=== PATIENT | male | born 1980 | race Caucasian/White ===

== ENCOUNTER 2024-05-02 16:02 | Emergency (ER) | payer BC, SELFPAY ==
[2024-05-02 16:23] VITALS: BP 132/91; PULSE 113; TEMP 36.9; O2SAT 96; BMI 28.6
[2024-05-02 16:40] LABS: Influenza Virus A Antigen Negative; Influenza Virus B Antigen Negative; Internal Control Within Normal Limits
[2024-05-02 16:41] LABS: Internal Control Within Normal Limits; SARS-CoV-2 Ag NEGATIVE (NEGATIVE); Strep A Antigen Screen Negative
[2024-05-02] MEDS: PREDNISONE 20 MG TABLET 40 MG PO (17:12)
[2024-05-02] MEDS: AMOXICILLIN/POT CLAV 875-125 MG TABLET 1 TAB PO (17:13)
[2024-05-02] MEDS: DOXYCYCLINE MONOHYDRATE 100 MG CAPSULE PO (17:13)
[2024-05-02 17:17] VITALS: PULSE 98; O2SAT 100
--- NOTE | 2024-05-02 17:26 | ED_ITS ---
HPI HPI - General Adult General Chief complaint: Upper Respiratory Infection Stated complaint: Upper Respiratory Infection Time Seen by Provider: 05/02/24 16:38 Source: patient Mode of arrival: walk-in Limitations: no limitations History of Present Illness HPI narrative: 43-year-old male to the emergency department chief complaint of 2 weeks of productive cough, fevers, chills, malaise. Patient reports he has a history of asthma, he is a daily smoker. He denies any chest pain. He reports mild shortness of breath with coughing fits. Otherwise at his baseline health Related Data Home Medications ?Medication ?Instructions ?Recorded ?Confirmed losartan 50 mg tablet 75 mg PO QDAY 05/02/24 05/02/24 propranolol 20 mg tablet 20 mg PO Q8H 05/02/24 05/02/24 Previous Rx's ?Medication ?Instructions ?Recorded amoxicillin 875 mg-potassium 1 tab PO Q12H #14 tabs 05/02/24 clavulanate 125 mg tablet dxoxfvuvmrbzquh-nmmflukyqeovjba-UN 5 ml PO Q4H PRN cold symptoms #118 05/02/24 2 mg-30 mg-10 mg/5 mL oral syrup mL (Bromfed DM) doxycycline monohydrate 100 mg 100 mg PO BID 7 days #14 caps 05/02/24 capsule prednisone 20 mg tablet 60 mg (3 x 20 mg) PO DAILY 5 days 05/02/24 #15 tabs Allergies Allergy/AdvReac Type Severity Reaction Status Date / Time No Known Drug Allergies Allergy Verified 05/02/24 16:21 Opioid HPI Opioid Management Most Recent Opioid Data: No Data to Display Review of Systems ROS Status of ROS 10 or more systems reviewed and unremark able except as noted in history and below PFSH PFSH Social History Little interest or pleasure in doing things: not at all Feeling down, depressed, or hopeless: not at all Exam Narrative Exam Narrative: VITALS: I have reviewed the triage vital signs. GENERAL: Well developed, well appearing adult in no acute distress. NEURO: Alert and oriented. Moves all extremities. Face is symmetric and expressive. EYES: PERRL. No scleral icterus or conjunctival injection. No discharge. HENT: Normocephalic, atraumatic. Hearing is grossly intact. Nares grossly patent and without discharge. Mucous membranes moist. NECK: No JVD. Patient moves neck without restriction. CARDIO: Rhythm regular. Normal rate. No murmur, rub, or gallop. Pulses equal bilaterally in the upper and lower extremity. No lower extremity edema. PULM: Wet cough. Rhonchi that clear with coughing. Diminished at the bases. Trace wheezing throughout GI/: Abdomen is soft and non-tender. Normoactive bowel sounds. EXTREMITIES: Symmetric muscle bulk. No joint swelling. No clubbing, cyanosis, or deformity. SKIN: Warm and dry. Normal turgor. No rash or lesions appreciated. PSYCH: Mood, affect, and interaction is appropriate to the setting. Constitutional Vital Signs, click to edit/add: Last Vital Signs Temp 98.5 F 05/02/24 16:23 Pulse 98 H 05/02/24 17:17 Resp 20 05/02/24 17:17 BP 132/91 05/02/24 16:23 Pulse Ox 100 05/02/24 17:17 O2 Del Method Room Air 05/02/24 17:17 Course Vital Signs Vital signs: Vital Signs Temperature 98.5 F 05/02/24 16:23 Pulse Rate 113 H 05/02/24 16:23 Respiratory Rate 18 05/02/24 16:23 Blood Pressure 132/91 05/02/24 16:23 Pulse Oximetry 96 05/02/24 16:23 Oxygen Delivery Method Room Air 05/02/24 16:23 Temperature 98.5 F 05/02/24 16:23 Pulse Rate 98 H 05/02/24 17:17 Respiratory Rate 20 05/02/24 17:17 Blood Pressure 132/91 05/02/24 16:23 Pulse Oximetry 100 05/02/24 17:17 Oxygen Delivery Method Room Air 05/02/24 17:17 Medical Decision Making [facility] Narrative Medical decision making narrative: 43-year-old male to the emergency department chief complaint of productive cough for 2 weeks. Vital stable, the patient is afebrile. Clinical exam and history are consistent with pneumonia. Given his smoking status/asthma we will cover him with both doxycycline and Augmentin. Bromfed, steroids, albuterol for suspected superimposed asthma exacerbation. Patient agrees with this plan. Return precautions were discussed. All questions were answered. Patient was discharged home. Lab Data Labs: Lab Results 05/02/24 Range/Units 16:20 Influenza Type A Ag Negative Influenza Type B Ag Negative SARS-CoV-2 Ag (CV2AG) Negative (NEGATIVE) Streptococcus Screen Negative Discharge Plan Discharge Chief Complaint: Upper Respiratory Infection Clinical Impression: Community acquired pneumonia Patient Disposition: Home, Self-Care Time of Disposition Decision: 17:00 Condition: Good Mode of Transportation: Private Vehicle Prescriptions / Home Meds: New doxycycline monohydrate 100 mg capsule 100 mg PO BID 7 Days Qty: 14 0RF ncfsulevcmqvgik-mnolrjdmh-PN [Bromfed DM] 2-30-10 mg/5 mL syrup 5 ml PO Q4H PRN (Reason: cold symptoms) Qty: 118 0RF amoxicillin-pot clavulanate 875-125 mg tablet 1 tab PO Q12H Qty: 14 0RF prednisone 20 mg tablet 60 mg PO DAILY 5 Days Qty: 15 0RF No Action losartan 50 mg tablet 75 mg PO QDAY propranolol 20 mg tablet 20 mg PO Q8H Print Language: [place] Instructions: Community Acquired Pneumonia (ED) Referrals: Celine Flores MD [Primary Care Provider] - 1 week (Call the office of your primary care doctor to arrange for follow-up within the above-stated timeframe. Your ED visit was focused on your acute issue and does not replace primary care. You should review your labs, imaging, and diagnoses from this ED visit with your primary care physician. There may be non-emergent/ incidental findings that need further evaluation. You should review your vital signs including blood pressure with your PCP. If you were prescribed medications you should discuss possible side-effects and drug interactions with your pharmacist. Call 911 or go to the nearest Emergency Department if you develop any new or worsening symptoms. Seek immediate medical attention if you develop: worsening shortness of breath, difficulty breathing, chest pain, nausea, vomiting, weakness, numbness, tingling, excessive sweating, loss of motion in your arms or legs, or any new or worsening symptoms.) Discharge Date/Time: 05/02/24 17:17
== END 2024-05-02 17:17 | disposition home or self-care (01) ==
PROVIDERS: Emergency Provider Student in an Organized Health Care Education/Training Program; Family Provider Family Medicine; PCP Family Medicine
DX: J18.9 Pneumonia, unspecified organism (principal); J45.909 Unspecified asthma, uncomplicated; F17.200 Nicotine dependence, unspecified, uncomplicated
CPT/HCPCS: 87070; 87804; 87811; 87880; 99285; J7512

== ENCOUNTER 2024-05-05 00:05 | Emergency (ER) | payer BC, SELFPAY ==
[2024-05-05 00:08] VITALS: BP 136/86; PULSE 72; TEMP 36.7; O2SAT 100; BMI 28.6
--- NOTE | 2024-05-05 00:16 | ECG_ITS ---
[facility] Test Date: 2024-05-05 Pat Name: ELVIN YO Department: Room: - Gender: Male Belt Maker: : 1980 Requested By: [id number] Order Number: [id number] Reading MD: HALEY SANDERSON Measurements Intervals [place] Rate: 69 P: 65 UT: 150 QRS: 20 QRSD: 104 T: 33 QT: 370 QTc: 390 Interpretive Statements 1100 Sinus rhythm 9110 normal ECG No previous ECG available for comparison Electronically Signed On 05-05-2024 6:49:12 EST by HALEY SANDERSON
--- NOTE | 2024-05-05 00:16 | XR_ITS ---
The [address] [address] Patient Name: ELVIN YO MRN: [id number] date: 1980 Sex: M Assigned Patient Location: ER Current Patient Location: ER Accession/Order Number: [id number] Exam Date: 05/05/2024 00:38 Report Date: 05/05/2024 00:56 At the request of: RYAN PARRY Procedure: XR chest 2V EXAM: XR chest 2V HISTORY: chest pain COMPARISON: None. TECHNIQUE: 2 views of the chest were obtained. FINDINGS: The cardiac silhouette is normal in size. Calcified granulomas are seen in the right lung. There is no significant pneumothorax or pleural effusion. No acute osseous abnormality is seen. XR/XR chest 2V IMPRESSION: 1. No acute cardiopulmonary abnormality. Electronically authenticated by: Andrew CRONIN Date: 05/05/2024 00:56
--- OUTSIDE RECORDS SUMMARY | 2024-05-05 00:17 | XMS_ITS | CCD ---
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 Role Phone JACQUI SUTTON Attending Unavailable Gudimella, Wood Primary Care Physician Gudimella, Wood Attending Unavailable Gudimella, Wood Attending Unavailable Gudimella, Wood Attending Unavailable Gudimella, Wood Attending Unavailable Gudimella, Wood Attending Unavailable Gudimella, Wood Attending Unavailable Gudimella, Celine Referring Unavailable Cristhian Murray Attending Unavailable Cristhian Murray Admitting Unavailable Cristhian Murray Attending Unavailable Cristhian Murray Referring Unavailable Gudimella, Wood Admitting Unavailable Gudimella, Wood Attending Unavailable Gudimella, Wood Admitting Unavailable Gudimella, Wood Attending Unavailable Rocio Aragon Attending Unavailable Gudimella, Wood Referring Unavailable Gudimella, Wood Attending Unavailable Gudimella, Wood Attending Unavailable Medications Current Medications Medication Drug Class(es) Dates Sig (Normalized) Sig (Original) atorvastatin 20 mg oral tablet (2 sources) HMG-CoA Reductase Inhibitor Start: 03-17-2024 take 1 tablet by mouth once daily atorvastatin 20 mg Tab See Instructions, TAKE 1 TABLET BY MOUTH EVERY DAY, # 90 tab(s), Refills(s) 1, Pharmacy: [id number], 188, cm, 02/23/24 12:34:00 EDT, Height/Length Dosing, 105.8, kg, 02/23/24 12:34:00 EDT, Weight Dosing Start Date: 03/17/24 Status: Ordered Start: 02-23-2024 take 1 tablet by zaheer th once daily atorvastatin 20 mg Tab 20 mg = 1 tab(s), Oral, Daily, # 30 tab(s), Refills(s) 0, Pharmacy: [facility]/pharmacy #[id number], 188, cm, 02/23/24 12:34:00 EDT, Height/Length Dosing, 105.8, kg, 02/23/24 12:34:00 EDT, Weight Dosing Start Date: 02/23/24 Status: Ordered benzonatate 200 mg oral capsule (1 source) Non-narcotic Antitussive Start: 08-04-2023 End: 08-11-2023 take 1 capsule by mouth three times daily as needed for cough benzonatate 200 mg oral capsule 200 mg = 1 cap(s), Oral, TID, PRN Cough, X 7 day(s), # 14 cap(s), Refills(s) 0, Pharmacy: [id number], 188, cm, 08/04/23 13:37:00 EDT, Height/Length Dosing, 99.8, kg, 08/04/23 13:37:00 EDT, Weight Dosing Start Date: 08/04/23 Stop Date: 08/11/23 Status: Ordered BP machine and regular cuff (10 sources) Start: 06-03-2023 BP machine and regular cuff BP machine and regular cuff, See Instructions, 1 EA, 0, Check BP 3x/day for 5 days, Supply Start Date: 06/03/23 Status: Ordered brompheniramine maleate 0.4 mg/ml / dextromethorphan hydrobromide 2 mg/ml / pseudoephedrine hydrochloride 6 mg/ml oral solution (1 source) alpha-Adrenergic Agonist, Uncompetitive B-hdhmue-T-asparta te Receptor Antagonist, Sigma-1 Agonist Start: 08-04-2023 take 5 mL by mouth four times daily for cough and congestion Bromfed DM oral syrup 5 mL, Oral, QID for cough and congestion, 200 mL, Refill(s) 0, [id number], 188, cm, 08/04/23 13:37:00 EDT, Height/Length Dosing, 99.8, kg, 08/04/23 13:37:00 EDT, Weight Dosing Start Date: 08/04/23 Status: Ordered losartan potassium 50 mg oral tablet (10 sources) Angiotensin 2 Receptor Beverly Start: 03-05-2024 losartan 50 mg Tab 75 mg = 1.5 tab(s), Oral, Daily, # 135 tab(s), Refills(s) 1, [id number], cm, 02/23/24 12:34:00 EDT, Height/Length Dosing, 105.8, kg, 02/23/24 12:34:00 EDT, Weight Dosing Start Date: 03/05/24 Status: Ordered Start: 09-09-2023 losartan 50 mg Tab 75 mg = 1.5 tab(s), Oral, Daily, # 135 tab(s), Refills(s) 1, [id number] 188, cm, 08/04/23 13:37:00 EDT, Height/Length Dosing, 99.8, kg, 08/04/23 13:37:00 EDT, Weight Dosing Start Date: 09/09/23 Status: Ordered Start: 06-17-2023 losartan 50 mg Tab 75 mg = 1.5 tab(s), Oral, Daily, # 30 tab(s), Refills(s) 0, Pharmacy: [id number], 188, cm, 06/17/23 9:26:00 EST, Height/Length Dosing, 100.7, kg, 06/17/23 9:26:00 EST, Weight Dosing Start Date: 06/17/23 Status: Ordered Start: 06-03-2023 losartan 50 mg Tab 100 mg = 2 tab(s), Oral, Daily, May decrease to 50 mg if BP less than 100/70 or higher with symptoms, # 60 tab(s), Refills(s) 0, Pharmacy: [id number], 188, cm, 06/03/23 8:35:00 EST, Height/Length Dosing, 101.1, kg, 06/03/23 8:35:00 EST, Weight Dosing Start Date: 06/03/23 Status: Ordered oseltamivir 75 mg oral capsule (1 source) Neuraminidase Inhibitor Start: 08-04-2023 End: 08-09-2023 take 1 capsule by mouth twice daily oseltamivir 75 mg Cap 75 mg = 1 cap(s), Oral, BID, X 5 day(s), # 10 cap(s), Refills(s) 0, Pharmacy: [id number], 188, cm, 08/04/23 13:37:00 EDT, Height/Length Dosing, 99.8, kg, 08/04/23 13:37:00 EDT, Weight Dosing Start Date: 08/04/23 Stop Date: 08/09/23 Status: Ordered polyethylene glycol 3350 413804 mg / potassium chloride 1480 mg / sodium bicarbonate 5720 mg / sodium chloride 73898 mg powder for oral solution (1 source) Osmotic Laxative Start: 07-08-2023 take 1 dose by mouth once NuLYTELY [place] oral powder for reconstitution See Instructions, 1 EA, Refill(s) 0, Per physcisians instructions prior to colonoscopy, [id number], 188, cm, 07/08/23 9:16:00 EST, Height/Length Dosing, 102, kg, 07/08/23 9:16:00 EST, Weight Dosing Start Date: 07/08/23 Status: Ordered propranolol hydrochloride 20 mg oral tablet (10 sources) beta-Adrenergic Beverly Start: 09-09-2023 take 1 tablet by mouth three times daily propranolol 20 mg Tab 20 mg = 1 tab(s), Oral, TID, # 270 tab(s), Refills(s) 1, [id number] 188, cm, 08/04/23 13:37:00 EDT, Height/Length Dosing, 99.8, kg, 08/04/23 13:37:00 EDT, Weight Dosing Start Date: 09/09/23 Status: Ordered Start: 07-14-2023 take 1 tablet by zaheer th three times daily propranolol 20 mg Tab 20 mg = 1 tab(s), Oral, TID, # 90 tab(s), Refills(s) 5, Pharmacy: [id number], 188, cm, 07/08/23 9:16:00 EST, Height/Length Dosing, 102, kg, 07/08/23 9:16:00 EST, Weight Dosing Start Date: 07/14/23 Status: Ordered Start: 06-03-2023 take 1 tablet by zaheer th three times daily propranolol 20 mg Tab 20 mg = 1 tab(s), Oral, TID, # 90 tab(s), Refills(s) 0 Start Date: 06/03/23 Status: Ordered Completed/Discontinued Medications Medication Drug Class(es) Dates Sig (Normalized) Sig (Original) Albuterol (Eqv-ProAir HFA) 90 mcg/inh inhalation aerosol (10 sources) Start: 01-01-2024 take 8.5 g by inhalation every six hours Albuterol (Eqv-ProAir HFA) 90 mcg/inh inhalation aerosol 180 mcg, 2 puff(s), Inhalation, q6hr Shortness of breath or wheezing, 8.5 gm, Refill(s) 3, [facility]/pharmacy #[id number], 188, cm, 08/04/23 13:37:00 EDT, Height/Length Dosing, 99.8, kg, 08/04/23 13:37:00 EDT, Weight Dosing Start Date: 01/01/24 Status: Ordered Start: 06-03-2023 take 2 puff(s) by in halation every six hours Albuterol (Eqv-ProAir HFA) 90 mcg/inh inhalation aerosol 2 puff(s), Inhalation, q6hr Shortness of breath or wheezing, Refill(s) 0 Start Date: 06/03/23 Status: Ordered Problems Active Problems Problem Classification Problem Date Documented Date Episodic/Chronic Appendicitis and other appendiceal conditions (10 sources) Appendicitis 11-01-2016 Episodic Disorders of lipid metabolism (9 sources) Hyperlipidemia; Translations: [Hyperlipidemia, unspecified] Onset: 06-17-2023 Chronic Essential hypertension (20 sources) Essential hypertension; Translations: [Essential (primary) hypertension] Onset: 06-03-2023 Chronic Genitourinary symptoms and ill-defined conditions (8 sources) Blood in urine; Translations: [Hematuria, unspecified] Onset: 06-17-2023 Episodic Influenza (4 sources) Influenza; Translations: [Influenza due to other identified influenza virus with other respiratory manifestations] Onset: 08-04-2023 Episodic Other ear and sense organ disorders (1 source) Disorder of ear; Translations: [Other specified disorders of ear, bilateral] Onset: 02-23-2024 Episodic Other ear and sense organ disorders (2 sources) Sensation of blocked ear 02-23-2024 Episodic Other hereditary and degenerative nervous system conditions (12 sources) Essential tremor; Translations: [Essential tremor] Onset: 06-03-2023 Chronic Other nutritional; endocrine; and metabolic disorders (14 sources) Overweight; Translations: [Overweight] Onset: 06-03-2023 Episodic Other nutritional; endocrine; and metabolic disorders (8 sources) Overweight in adulthood with body mass index of 25 or more but less than 30; Translations: [Body mass index (BMI) 28.0-28.9, adult] Onset: 06-03-2023 Episodic Other screening for suspected conditions (not mental disorders or infectious disease) (2 sources) Screening for malignant neoplasm of colon done; Translations: [Encounter for screening for malignant neoplasm of colon] Onset: 06-03-2023 Episodic Substance-related disorders (15 sources) Nicotine dependence; Translations: [Nicotine dependence, unspecified, uncomplicated] Onset: 06-03-2023 Chronic Comment on above: Added secondary to d ocumentation in Social History. Unclassified (13 sources) Patient encounter status 06-03-2023 Unclassified (2 sources) Medication refused 02-23-2024 Past or Other Problems Problem Classification Problem Date Documented Da te Episodic/Chronic Unclassified (10 sources) None (qualifier value) 10-19-2010 Results Test Name Value Interpretation Reference Range Facility Ambulatory Visit Summaryon 1 Ambulatory Visit Summary Ambulatory Visit Summary BLANCO HACKETT :1980 Visit Date:02/23/2024 Ambulatory Visit Instructions Your Diagnosis Congestion of both ears Hypertension Hyperlipidemia, Hyperlipidemia Immunization refused Smoker BMI 29.0-29.9,adult Your Care Team Attending Physician - Wood Flores MD Primary Care Physician - Wood Flores MD This Is Your Medications List atorvastatin (atorvastatin 20 mg Tab) Contact prescribing physician if questions or concerns Misc Prescription (BP machine and regular cuff) albuterol (Albuterol (Eqv-ProAir HFA) 90 mcg/inh inhalation aerosol) losartan (losartan 50 mg Tab) propranolol (propranolol 20 mg Tab) Procedures Performed Colonoscopy (07/17/2023), Appendectomy (1996). Discharge Vitals Heart Rate (Peripheral) 66 Blood Pressure 122/82 Height 74 in Height 188 cm Weight 232.76 lb Weight 105.8 kg BMI 29.93 Medications What How Much When Why Instructions New atorvastatin (atorvastatin 20 mg Tab) 1 Tablets By Mouth Every day Hyperlipidemia Pickup at [facility]/pharmacy #[id number] Unchanged albuterol (Albuterol (Eqv-ProAir HFA) 90 mcg/ inh inhalation aerosol) 2 Puffs Inhalation Every 6 hours as needed for Shortness of breath or wheezing Contact prescribing physician if questions or concerns Unchanged losartan (losartan 50 mg Tab) 1.5 Tablets By Mouth Every day Hypertension Contact prescribing physician if questions or concerns Unchanged Misc Prescription (BP machine and regular cuff) See instructions Hypertension Check BP 3x/ day for 5 days Contact prescribing physician if questions or concerns Unchanged propranolol (propranolol 20 mg Tab) 1 Tablets By Mouth 3 times a day Essential tremor Contact prescribing physician if questions or concerns Pharmacy Information [facility]/pharmacy #[id number]: [address], [place] [id number] [phone] Medications and Immunizations Administered Not Given influenza virus vaccine, inactivated, Postpone due to refusal Allergies No Known Allergies Problems Ongoing - Any problem that you are currently receiving treatment for. Congestion of both ears Essential tremor Hematuria Hyperlipidemia Hypertension Immunization refused Influenza B Overweight Screening for colon cancer Smoker Historical - Any problem that you are no longer receiving treatment for. Appendicitis Hypertension None Patient Survey You may receive a survey via text or e-mail asking about your office visit. Please share your experience with us by completing your survey. We appreciate your feedback and thank you for choosing us for your care. [facility] Family Medicine Office/Clini c Noteon 02-23-2024 Family Medicine Office/Clinic Note Family Medicine Office/Clinic Note Chief Complaint Dizzy spells HPI Staff Patient here today for dizziness. Onset: 3 days ago Characteristics: patient states he feels off balance and on the first day he had spinning sensation Relieved by: sit or lay down Associated Symptoms: pt states has had ongoing fatigue and not feeling himself for the past month Health Maintenance: Colonoscopy: 07/17/2023 Last Labs: 02/17/2024 through work flu vaccine: declines History of Present Illness Mr. Hackett is a 43 year old male here for dizziness. Staff HPI has been reviewed. Patient reports fatigue for about a month. States dizziness began about three days ago. Describes the dizziness as off balanced. Says the first day he felt like the room was spinning. The last two days he describes as off balanced. Says the episodes last only a few seconds and resolve once he lays down or closes his eyes. Reports adequate food and fluid intake. Denies recent illness. Denies anyone is sick at home. He reports increased blurriness some days but denies currently on exam. Denies nausea, vomiting, chest pain, SOB, hearing changes, headaches, congestion, fevers, chills, diarrhea, and constipation. He has gotten one covid vaccine, He declines flu vaccination. Review of Systems PHQ Score Initial Depression Screen Score: 0 SCORE ROS negative unless mentioned in HPI. Physical Exam Vitals & Measurements HR: 66(Peripheral) BP: 122/82 SpO2: 96% HT: 74 in HT: 188 cm WT: 105.8 kg WT: 232.76 lb BMI: 29.93 Vital signs reviewed. General: alert, in NAD Ears: Fluid appreciated behind tympanic membrane B/L; no EAC tenderness Throat: oral mucosa moist; tongue and uvula midline Skin: tinea versicolor appreciated on B/L UE, trunk, and neck Cardiovascular: regular rate and rhythm; no murmurs, rubs, or gallops Respiratory: lungs clear to auscultation; no wheezes, rhonchi, or crackles Extremities: no pedal edema, cyanosis, or clubbing GI: bowel sounds in all four quadrants; soft; no tenderness or guarding Neuro: Fairchild-Hallpike positive; CN II-XII intact; sensation and strength intact B/L in UE and LE; Romberg negative; oriented x 3 Assessment/Plan I, Danyelle Holloway, attest that I gathered the history and performed the physical and documented the note for this visit under the direction of Dr. Muir. 1. Congestion of both ears (H93.8X3: Other specified disorders of ear, bilateral) Begin OTC Zyrtec and Flonase. Ensure adequate fluid hydration. F/u PRN or sooner if symptoms do not resolve. 2. Hypertension (I10: Essential (primary) hypertension) Chronic Stable Continue losartan 50 mg daily. Patient tolerating well and denies any adverse side effects. 3. Hyperlipidemia, (E78.5: Hyperlipidemia, unspecified)Hyperlipi demia Total cholesterol 188 mg/dL, trig 112 mg/dL, and LDL 135 mg/dL (06/03/2023). ASCVD risk 6.3%. Begin atorvastatin 20 mg daily. Patient verbalizes understanding and is agreeable with this plan. Counseled patient on lifestyle changes such as reducing red meat and salt intake. F/u one month 4. Immunization refused (Z28.21: Immunization not carried out because of patient refusal) Patient declined flu vaccination. 5. Smoker (F17.200: Nicotine dependence, unspecified, uncomplicated) Patient advised to refrain from smoking. 6. BMI 29.0-29.9,adult (Z68.29: Body mass index [BMI] 29.0-29.9, adult) Advised patient to adhere to well balanced diet and exercise regimen. Pt seen with the Medical Student. Agree with the assessment and plan. Follow-up No qualifying data available Problem List/Past Medical History Ongoing Congestion of both ears Essential tremor Hematuria Hyperlipidemia Hypertension Immunization refused Influenza B Overweight Screening for colon cancer Smoker Historical Appendicitis Hypertension None Procedure/Surgical History Colonoscopy (07/17/2023), Appendectomy (1996). 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 Never Smokeless Tobacco Use:. Cigarettes, Yes, 02/23/2024 Family History Diabetes mellitus type 2: Grandparent. High cholesterol: Mother. Primary maligna (more content not included)... [facility] Comment on above: Result Comment: Elec tronically Signed By: Wood Flores MD\.br\Date and Time Signed: 02/23/24 13:50 EDT\.br\Electronically Co-Signed By: Danyelle Burns\.br\Date and Time Co-Signed: 02/23/24 13:32 EDT Reminderson 08-15-2023 Reminders - From: Betty Scott MA To: N - Clinical; Sent: 08/15/2023 14:26:58 EDT Show up: 06/16/2030 14:26:00 EST Subject: Colonoscopy recall 7 years Reminder/Recall Last colonoscopy: 07/17/2023 Repeat: 7 years Reason: Tub Adenoma [facility] H&P Updateon 08-08-2023 H&P Update H&P Reviewed. Patien t seen and examined, appropriate for planned surgery H&P Reviewed. Patient seen and examined, appropriate for planned surgery [facility] Family Medicine Office/Clini c Noteon 08-05-2023 Family Medicine Office/Clinic Note Chief Complaint cough and congestion HPI Staff Patient here today for cough and congestion. Onset: 3 days ago Progression (worsening/stable/imp roving): Worsening Fatigue/Malaise/Tired ness: yes Fever: yes. Chills: yes. Nausea: no. Vomiting: no. Headache: no Eye itching: yes. Eye watering: yes. Nose itching: no. Nose watering: yes. Sneezing: yes Post-nasal drip: no Ear Congestion: no Nose congestion: yes Sinus congestion: yes Chest congestion: yes Loss of taste/smell: no Sore throat: yes mild Shortness of breath/Difficutly breathing: yes Chest discomfort/pain: yes with cough Muscle aches/soreness/pain: yes Joint aches/tenderness/pain : no Cough present: yes Cough productive: yes, small amount Cough transparency: chahal color Which two symptoms are affecting you the most: cough and headache Remedies tried and what did and didn't help: mucinex and niquil Have you had similar symptoms before and if so, what helped: Known Exposure: yes, son History of COVID-19 previously: yes Vaccinated against COVID-9: yes Health Maintenance: Colonoscopy: 07/17/2023 PSA: No qualifying data available. Last Labs: 06/03/2023 History of Present Illness Blanco Hackett is a 43-year-old male presenting today for cough and congestion. Staff HPI reviewed. Cough: The patient's cough is severe. Review of Systems PHQ Score Initial Depression Screen Score: 0 SCORE Negative except as stated in HPI. Physical Exam Vitals & Measurements T: 39.2 ?C(Oral) HR: 80(Peripheral) BP: 110/76 SpO2: 95% HT: 74 in HT: 188 cm WT: 99.8 kg WT: 219.56 lb BMI: 28.24 General: Alert. Not in acute cardiopulmonary distress. Well hydrated, well developed, well nourished. Head: Normocephalic, atraumatic. Eyes: Conjunctiva pink. Sclera white. Pupils are equal, round, and reactive to light. Extraocular muscles intact. Ear, Nose and Throat: In the posterior pharynx, there is mild cobblestoning. No tenderness on palpating tragus of both ears. No sinus tenderness. Respiratory: Spontaneous non-labored respirations. Symmetric chest expansion. Equal bilateral aeration. Clear to auscultation. No wheezing, rales or rhonchi. Cardiovascular: Heart sounds normal. No thrills. Regular rate and rhythm, no murmurs, rubs or gallops. Radial pulse 2+ bilaterally. Posterior tibial pulse 2+ bilaterally. Dorsalis pedis pulse 2+ bilaterally. Assessment/Plan The patient's other vitals are within normal limits except for the temperature. 1. Influenza B (J10.1: Influenza due to other identified influenza virus with other respiratory manifestations) The patient's rapid Influenza test results confirmed influenza B, negative of COVID-19. I prescribed oseltamivir 75 mg twice daily for five days and Bromfed 4 times daily. The patient was informed about the importance of taking precautions when falling or driving. I advised him to drink 2 cups of fluids daily, increase sleep to 7 to 9 hours per night as needed, take naps as necessary, and consume a diet rich in vegetables and fruits. Additionally, instructed to use Flonase 2 sprays in each nostril twice daily for one week, then switch to Flonase 1 spray in each nostril twice daily. The patient was educated on the correct application of Flonase. 2. Smoker (F17.200: Nicotine dependence, unspecified, uncomplicated) I advised him to refrain from using it. 3. Overweight (E66.3: Overweight) I advised him to follow healthy physical activity, nutrition, and lifestyle practices. 4. BMI 28.0-28.9,adult (Z68.28: Body mass index [BMI] 28.0-28.9, adult) The standard range for ages 18 and older is >=18.5 and <25 kg/m2. Your BMI today was above this range. There are medical benefits to weight loss. Increase whole foods, decrease processed foods, exercise at least 150 minutes per week. We can offer counselling, referral, and/or medical support in addressing this problem. Your BMI and weight management will be followed at subsequent visits. Portions of this record may have been created with voice recognition artificial intelligence software, specifically [employer], [employer] and or [employer]. Substitutions may have occurred due to the inherent limitations of voice recognition and artificial intelligence software. Documentation services were performed after patient or guardian consented to allow [email or web address] to record this visit. KYLIE allergy specialist João Ladd and provider reviewed before signing. Follow-up No qualifying data available Problem List/Past Medical History Ongoing BMI 28.0-28.9,adult Essential tremor Hematuria Hyperlipidemia Hypertension Influenza B Overweight Screening for colon cancer Smoker Historical Appendicitis Hypertension None Procedure/Surgical History Colonoscopy (07/17/2023), Appendectomy (1996). Medications Albuterol (Eqv-ProAir HFA) 90 mcg/inh inhalation aerosol, 2 puff(s), Inhalation, q6hr, PRN benzonatate (more content not included)... [facility] Comment on above: Result Comment: Elec tronically Signed By: Wood Flores MD\.br\Date and Time Signed: 08/05/23 07:44 EDT\.br\Electronically Co-Signed By: João Ladd\.br\Date and Time Co-Signed: 08/04/23 15:05 EDT Ambulatory Visit Summaryon 0 08-04-2023 Ambulatory Visit Summary BLANCO HACKETT :1980 Visit Date:08/04/2023 Ambulatory Visit Instructions Your Diagnosis Influenza B Smoker Overweight BMI 28.0-28.9,adult Your Care Team Attending Physician - Wood Flores MD Primary Care Physician - Wood Flores MD This Is Your Medications List benzonatate (benzonatate 200 mg oral capsule) brompheniramine/dextr omethorphan/PSE (Bromfed DM oral syrup) oseltamivir (oseltamivir 75 mg Cap) Contact prescribing physician if questions or concerns Misc Prescription (BP machine and regular cuff) albuterol (Albuterol (Eqv-ProAir HFA) 90 mcg/inh inhalation aerosol) losartan (losartan 50 mg Tab) propranolol (propranolol 20 mg Tab) Procedures Performed Colonoscopy (07/17/2023), Appendectomy (1996). Discharge Vitals Temperature (Oral) 39.2 ?C Heart Rate (Peripheral) 80 Blood Pressure 110/76 Height 188 cm Height 74 in Weight 99.8 kg Weight 219.56 lb BMI 28.24 What to do next Scheduled Follow-Up Appointments 2023 10:30 AM EDT With: Rocio Aragon MD Where: [facility] Ambulatory Visit Summary BLANCO HACKETT :1980 Visit Date:08/04/2023 Ambulatory Visit Instructions Your Diagnosis Influenza B Smoker Overweight BMI 28.0-28.9,adult Your Care Team Attending Physician - Wood Flores MD Primary Care Physician - Wood Flores MD This Is Your Medications List benzonatate (benzonatate 200 mg oral capsule) brompheniramine/dextr omethorphan/PSE (Bromfed DM oral syrup) oseltamivir (oseltamivir 75 mg Cap) Contact prescribing physician if questions or concerns Misc Prescription (BP machine and regular cuff) albuterol (Albuterol (Eqv-ProAir HFA) 90 mcg/inh inhalation aerosol) losartan (losartan 50 mg Tab) propranolol (propranolol 20 mg Tab) Procedures Performed Colonoscopy (07/17/2023), Appendectomy (1996). Discharge Vitals Temperature (Oral) 39.2 ?C Heart Rate (Peripheral) 80 Blood Pressure 110/76 Height 188 cm Height 74 in Weight 99.8 kg Weight 219.56 lb BMI 28.24 What to do next Scheduled Follow-Up Appointments 2023 10:30 AM EDT With: Lue MD, Rocio M. [facility] Patient Correspondenceon Patient Correspondence [id number] .00TIFF [facility] Provider Letteron 08-04-2023 Provider Letter August 04, 2023 BLANCO HACKETT [address] [place] [address] : 1980 To Whom It May Concern, Please excuse above patient from work. May Return to Work On: 08/05/2023 Sincerely, Dr. Wood Marquez[address] [address] [facility] IntraOperative Documentson 0 07-23-2023 IntraOperative Documents [id number] .00TIFF [facility] Consenton 07-18-2023 Consent [id number]# 1.00TIFF [facility] Discharge Instructionson Discharge Instructions [id number]# 1.00TIFF [facility] Main OR Intraoperative Recor don 07-18-2023 Main OR Intraoperative Record IntraOp Document Type FT Summary Primary Physician: Cristhian Murray MD Finalized Date/Time: 07/18/23 14:44:53 Pt. Name: BLANCO HACKETT/Sex: 1980 Male Med Rec #: [id number] Physician: Cristhian Murray MD Financial #: [id number] Pt. Type: O Room/Bed: / Admit/Disch: 07/17/23 12:22:19 - 07/17/23 23:59:59 Institution: Case Times FT Entry 1 Patient Times In Room 07/17/23 14:04:00 Out Room 07/17/23 14:29:00 Procedure Times Start 07/17/23 14:09:00 Stop 07/17/23 14:26:00 Anesthesia Times Start 07/17/23 14:04:00 Stop 07/17/23 14:29:00 Time at [facility] 07/17/23 14:17:00 Last Modified By: Irma PEREZ, Cait Dyson 07/17/23 14:29:31 General Comments: 07/18/23 Chart opened to review and send charges LRoth CSFA Case Attendance FT Entry 1 Entry 2 Entry 3 Case Attendee Grey MARTINEZ, Cristhian Solis RN, Cait Hernandez CST, Eduarda Brito Role Performed Anesthesiologist Engine House Helper - Primary Scrub - Primary Hog Operator Time In 07/17/23 14:04:00 07/17/23 14:04:00 07/17/23 14:04:00 Time Out 07/17/23 14:21:00 07/17/23 14:29:00 07/17/23 14:29:00 Procedure COLONOSCOPY(.) COLONOSCOPY(.) COLONOSCOPY(.) Comments Dr. Mclean supervising procedure. Last Modified By: Irma PEREZ, Cait Solis RN, Cait Reyes RN 07/17/23 14:29:34 07/17/23 14:29:34 07/17/23 14:29:34 Entry 4 Entry 5 Case Attendee Terri PIERSON, Cristhian Salas DNP, LAY OUT DRAFTER, Malik NKlaudia Role Performed Surgeon - Primary LAY OUT DRAFTER Time In 07/17/23 14:04:00 07/17/23 14:20:00 Time Out 07/17/23 14:29:00 07/17/23 14:29:00 Procedure COLONOSCOPY(.) COLONOSCOPY(.) Comments Dr. Mclean supervising procedure. Last Modified By: Irma PEREZ, Cait Gary CST, Simin Lainez 07/17/23 14:29:34 07/18/23 14:43:53 Perioperative Protocols FT Pre-Care Text: Implements protective measures prior to operative or invasive procedure, confirms identity before the operative or invasive procedure, verifies operative procedure, surgical site, and laterality Entry 1 Procedure(s) COLONOSCOPY(.) Patient Identity Birthday, ID Band Verified (select at Check, Patient least 2): Participation Consents / H and P Anesthesia Consent, Operative Site N/A Verified HandP, Surgery/Procedure Marking Verified Consent Surgical Site No Laterality Verified n/a Verified Procedure Verified Yes Correct Patient Yes Position Verified Availability Equipment, Medication Prep Dry n/a Verified (If Applicable) PreOp Antibiotic No Time Out Cristhian Tello, Given Participants Cait Solis RN, David SANDOVAL, Terri Davalos MD, John E. Time Out Complete 07/17/23 14:06:00 Outcomes Met? Yes Last Modified By: Cait Solis RN 07/17/23 14:06:26 Post-Care Text: The patient is free from signs and symptoms of injury caused by extraneous objects Allergy Information FT Pre-Care Text: Verifies allergies Entry 1 Allergies Reviewed? Yes Allergies Reviewed Self/Patient With Outcomes Met? Yes Last Modified By: Cait Solis RN 07/17/23 14:05:47 Post-Care Text: The patient received appropriate medication(s) safely administered during the perioperative period Surgical Procedures FT Entry 1 Procedure Description Procedure COLONOSCOPY Modifiers . Surgeon Description Colonoscopy with cecal polypectomy Primary Procedure Yes Primary Surgeon Cristhian Murray MD Start 07/17/23 14:09:00 Stop 07/17/23 14:26:00 Anesthesia Type General Surgical Service General Wound Class 2 - Clean-Contaminated Last Modified By: Cait Solis RN 07/17/23 14:27:07 General Case Data FT Pre-Care Text: Classifies surgical wound, implements aseptic technique, initiates traffic control Entry 1 Case Information OR ENDO 1 FT Case Level Level 2 Wound Class 2 - Clean-Contaminated Specialty General ASA Class 3 Preop Diagnosis SCREENING Postop Same As Preop No Postop Diagnosis Cecal polyp Outcomes Met? Yes Last Modified By: Cait Solis RN 07/17/23 14:18:14 Post-Care Text: The patient is free from signs and symptoms of infection Skin Assessment (Pre Procedure) FT Pre-Care Text: Implements protective measures to prevent skin/ tissue injury due to thermal or mechanical sources Evaluates for signs and symptoms of physical injury to skin and tissue Entry 1 Skin Integrity Intact, Snook, Warm, and Skin Abnormality No Dry Outcomes Met? Yes Last Modified By: Cait Solis RN 07/17/23 14:06:58 Post-Care Text: The patient is free from signs and symptoms of injury caused by extraneous objects Patient Positioning FT Pre-Care Text: Identifies physical alterations that require additional precautions for procedure-specific positioning, verifies presence of prosthetics or corrective devices, positions the patient, evaluates the patient for signs and symptoms of injury as a result of positioning Entry 1 Procedure COLONOSCOPY(.) Body Position Lateral, right side up Feet Uncrossed? Yes Left Arm Position Restin (more content not included)... [facility] Postoperative Documentson Postoperative Documents [id number]# 1.00TIFF [facility] Consent for Treatmenton 06-20 Consent for Treatment [id number] .00TIFF [facility] Discharge Instructionson Discharge Instructions BLANCO HACKETT :1980 Visit Date:07/17/2023 Inpatient Discharge Instructions Your Care Team Admitting Physician - Cristhian Murray MD Referring Physician - Cristhian Murray MD Reason for Your Visit SCREENING Your Diagnosis Screening for colon cancer Tests Performed Pathology Tissue Exam -- Results Pending -- Please visit your patient portal for your results or contact your primary care physician. This Is Your Medications List Misc Prescription (BP machine and regular cuff) albuterol (Albuterol (Eqv-ProAir HFA) 90 mcg/inh inhalation aerosol) losartan (losartan 50 mg Tab) propranolol (propranolol 20 mg Tab) Procedure History Colonoscopy (07/17/2023), Appendectomy (1996). What to do next Instructions From Your Doctor Event Name Event Result Pharmacy Information Other: [facility] [place] Previously Scheduled Follow-Up Appointments 2023 10:30 AM EDT With: Mahesh PIERSON, Rocio Newell Where: [facility] Comment on above: Result Comment: Elec tronically Signed By: Aryan PEREZ, Jeimy Roman\.br\Date and Time Signed: 07/17/23 14:33 EST Inpatient Patient Summaryon 07-17-2023 Inpatient Patient Summary [address] [address] [phone] [place] [address] Clinical Discharge Instructions PERSON INFORMATION Name: BLANCO HACKETT PHYSICIANS Admitting Physician: Cristhian Murray MD Attending Physician: Cristhian Murray MD PCP: Wood Flores MD Discharge Diagnosis: Comment: PATIENT EDUCATION INFORMATION Instructions: Colonoscopy, Adult, Care After Medication Leaflets: Follow up: Type Location Start Finish State [facility] New Patient [facility] [place] 12/04/2023 10:30 AM 12/04/2023 11:00 AM Confirmed MEDICATION LIST Medications to Continue with No Changes Other Medications albuterol (Albuterol (Eqv-ProAir HFA) 90 mcg/inh inhalation aerosol) 2 Puffs Inhalation every 6 hours as needed Shortness of breath or wheezing. losartan (losartan 50 mg Tab) 1.5 Tablets By Mouth every day. Refills: 0. Misc Prescription (BP machine and regular cuff) Check BP 3x/day for 5 days. Refills: 0. propranolol (propranolol 20 mg Tab) 1 Tablets By Mouth 3 times a day. Refills: 5. Comment: [facility] Main OR PACU I Recordon 06-20 Main OR PACU I Record PACU Phase I Docum ent Type FT Summary Primary Physician: Cristhian Murray MD Finalized Date/Time: 07/17/23 15:05:51 Pt. Name: BLANCO HACKETT Alee/Sex: 1980 Male Med Rec #: [id number] Physician: Cristhian Murray MD Financial #: [id number] Pt. Type: O Room/Bed: / Admit/Disch: 07/17/23 12:22:19 - Institution: Case Times PACU I FT Pre-Care Text: Identifies barriers to communication and implements measures to provide psychological support Develops individualized plan of care, and ensures continuity of care Maintains patient's dignity and privacy, and maintains patient confidentiality Identifies and reports philosophical, cultural, and spiritual beliefs and values Identifies individual values and wishes concerning care Implements aseptic technique, and administers prescribed antibiotic therapy and immunizing agents as ordered Evaluates postoperative tissue perfusion Implements thermoregulation measures, and monitors body temperature Evaluates postoperative respiratory status Evaluates postoperative cardiac status Evaluates postoperative neurological status Assesses pain control, collaborated in initiating patient-controlled analgesia and implements alternative methods of pain control Verifies allergies, administers prescribed medications and solutions, evaluates response to medications Entry 1 In PACU I 07/17/23 14:30:00 Discharge from PACU 07/17/23 15:00:00 I Outcomes Met? Yes Last Modified By: Jeimy Baeza RN 07/17/23 15:05:40 Post-Care Text: The patient demonstrates knowledge of the expected response to the operative or invasive procedure The patient's care is consistent with the individualized perioperative plan of care The patient's right to privacy is maintained The patient's value system, lifestyle, ethnicity, and culture are considered, respected, and incorporated into the perioperative plan of care The patient participates in decisions affecting his or her perioperative plan of care The patient is free from signs and symptoms of infection The patient has wound/tissue perfusion consistent with or improved from baseline levels established preoperatively The patient is at or returning to normothermia at the conclusion of the immediate postoperative period The patient's respiratory function is consistent with or improved from baseline levels established preoperatively The patient's cardiovascular status is consistent with or improved from baseline levels established preoperatively The patient's cardiovascular status is consistent with or improved from baseline levels established preoperatively The patient demonstrates and/or reports adequate pain control throughout the perioperative period The patient received appropriate medication(s), safely administered during the perioperative period Acuity Level PACU I FT Entry 1 Start Time 07/17/23 14:30:00 Stop Time 07/17/23 15:00:00 Acuity Level Acuity Level I Last Modified By: Jeimy Baeza RN 07/17/23 15:05:48 Finalized By: Jeimy Baeza RN Document Signatures Signed By: Jeimy Baeza RN 07/17/23 15:05 [facility] Main OR Preoperative Recordo n 07-17-2023 Main OR Preoperative Record Holding Area Document Type FT Summary Primary Physician: Cristhian Murray MD Finalized Date/Time: 07/17/23 12:54:01 Pt. Name: BLANCO HACKETT/Sex: 1980 Male Med Rec #: [id number] Physician: Cristhian Murray MD Financial #: [id number] Pt. Type: O Room/Bed: / Admit/Disch: 07/17/23 12:22:19 - Institution: Case Times Holding FT Pre-Care Text: Verifies consent for planned procedure, identifies individual values and wishes concerning care, includes family members in perioperative teaching Secures patient's records' belongings, and valuables, maintains patient's dignity and privacy, and maintains patient confidentiality Entry 1 In Holding 07/17/23 12:49:00 Outcomes Met? Yes Last Modified By: Paradise Sutton RN 07/17/23 12:52:25 Post-Care Text: The patient participates in decisions affecting his or her perioperative plan of care The patient's right to privacy is maintained Surgery Checklist FT Entry 1 Patient Birthday, ID Band Procedure History and Physical, Identification: Check, Patient Verification: Surgical Consent, With Participation Patient NPO after Midnight: No Date/Time: 07/17/23 09:00:00 Results Reviewed clear yellow Personal Items none Comments: Comment: Limitations: none Complaints of Pain: No Pain Comment: denies Operative Site n/a Marking: Availability Equipment Verified: Does Patient Smoke Yes If Yes to Smoking. half ppd Cigars or Cigarettes. How much per day? Patient states Yes Comment - Adult Korrian - girlfriend postop adult Supervision supervision available Case Cancelled in No Holding Area see comments below for reason Last Modified By: Paradise Sutton RN 07/17/23 12:53:56 General Comments: Pt. NPO since bowel prep finished at 0900/AW RN Finalized By: Paradise Sutton RN Document Signatures Signed By: Paradise Sutton RN 07/17/23 12:54 [facility] Monitor Recordon 07-17-2023 Monitor Record [id number]# 1.00TIFF [facility] Monitor Record [id number]# 1.00TIFF [facility] Operative Reporton Operative Report Patient: BLANCO HACKETT Age: 43 years Sex: Male : 1980 Associated Diagnoses: None Author: Cristhian Murray MD Pre-Procedure Procedure Date 07/17/2023 15:58:00 . Procedure Type: Colonoscopy with removal of tumor(s), polyp(s), or other lesion(s) by cold biopsy. Procedure provider Performed by Cristhian Murray MD. Current history and physical Documented on chart. Colonoscopy ([id number]) on 07/17/2023 at 43 Years. Appendectomy ([id number]) in 1996 at 16 Years.. Past Medical History Resolved None ([id number]): Resolved. Appendicitis ([id number]): Resolved. Hypertension ([id number]): Resolved.. Family History Primary malignant neoplasm of lung Mother Diabetes mellitus type 2 Grandparent . Procedure History Colonoscopy ([id number]) on 07/17/2023 at 43 Years. Appendectomy ([id number]) in 1996 at 16 Years.. Colorectal neoplasm risk assessment Average risk. Informed Consent After discussing the rationale, risks and benefits, and alternatives to this procedure, the patient provided signed consent for the procedure. Pre-procedure diagnosis: Screening: age 43 y/o. Medications (Selected) Inpatient Medications Ordered Lactated Ringers IV Lilia 1000 mL 1,000 mL: 1,000 mL, IV, 100 mL/hr, Routine, Start date 07/17/23 13:10:00 EST, 10 hour(s), Total volume (mL): 1,000, 102 kg, 2.31, m2 Sodium Chloride 0.9% IV Lilia 1000 mL 1,000 mL: 1,000 mL, IV, 20 mL/hr, Routine, Start date 07/17/23 12:26:00 EST, 50 hour(s), Total volume (mL): 1,000, 102 kg, 2.31, m2 Prescriptions Prescribed BP machine and regular cuff: BP machine and regular cuff, See Instructions, 1 EA, 0, Check BP 3x/day for 5 days, Supply losartan 50 mg Tab: 75 mg = 1.5 tab(s), Oral, Daily, # 30 tab(s), Refills(s) 0, Pharmacy: [id number], 188, cm, 06/17/23 9:26:00 EST, Height/Length Dosing, 100.7, kg, 06/17/23 9:26:00 EST, Weight Dosing propranolol 20 mg Tab: 20 mg = 1 tab(s), Oral, TID, # 90 tab(s), Refills(s) 5, Pharmacy: [id number], 188, cm, 07/08/23 9:16:00 EST, Height/Length Dosing, 102, kg, 07/08/23 9:16:00 EST, Weight Dosing Documented Medications Documented Albuterol (Eqv-ProAir HFA) 90 mcg/inh inhalation aerosol: 2 puff(s), Inhalation, q6hr Shortness of breath or wheezing, Refill(s) 0 ASA Classification: Class I. . Monitoring: See anesthesia record. . Procedure The procedure was performed in the hospital. See anesthesia record for sedation given during procedure. Rectal exam was performed and was normal. The patient was positioned starting in the left lateral decubitus position. Endoscope type used was an adult-size. The endoscope was lubricated then introduced through the anus. The scope was advanced to the cecum verified by photographing the appendiceal orifice. No difficulties encountered during the procedure. The bowel preparation quality was excellent and was adequate (see polyps greater than or equal to 6 millimeters). The patient tolerated the procedure well. Findings A single polyp 3 mm in size was noted. The polyp was located in the cecum. Intervention(s) included polypectomy with cold snare. Intervention was successful. Post-Procedure Complications: none. Estimated blood loss: none. Specimens: sent to pathology. Devices/ implants: none left in place. Impression and Plan Course: Progressing as expected. Recommendations: Repeat colonoscopy:: 7 yrs. Follow-up:: Await biopsy results in 3-5 days. Diet:: Regular diet. Medication resumption:: Continue current medications. Return to activities:: After 24 hours. [facility] Comment on above: Result Comment: Elec tronically Signed By: Cristhian Murray MD\.br\Date and Time Signed: 07/17/23 16:00 EST Outpatient Surgery Discharge Instructionon 07-17-2023 Outpatient Surgery Discharge Instruction [address] [address] Patient Discharge Instructions PERSON INFORMATION Name: BLANCO HACKETT Date of : 1980 Current Date: 07/17/2023 14:33:40 PHYSICIANS Admitting Physician: Cristhian Murray MD Discharge Diagnosis: BLANCO HACKETT has been given the following list of follow-up instructions, prescriptions, and patient education materials: IF UNABLE TO CONTACT YOUR PHYSICIAN AND YOU FEEL IT IS AN EMERGENCY, GO TO THE NEAREST EMERGENCY ROOM OR CALL 911 I, BLANCO HACKETT, have received the attached patient education materials/instruction s and have verbalized understanding: May we do a follow up call? Yes No I was present when discharge instructions were given Patient Signature Date Clinican/Nurse Signature Date Follow up: Type Location Start Finish State [facility] New Patient [facility] [place] 12/04/2023 10:30 AM 12/04/2023 11:00 AM Confirmed Pharmacy Information: Other: [facility] [place] You may receive a survey from [email or web address] asking you to rate your care experience. Your feedback is important and will help us understand what we do well and how we can improve the quality of care we provide to you, your loved ones and our community. It?s an honor to serve you. Thank you for choosing [facility] HERE ARE THE MEDICATION CHANGES THAT OCCURRED DURING YOUR HOSPITAL STAY Medications to Continue with No Changes Other Medications albuterol (Albuterol (Eqv-ProAir HFA) 90 mcg/inh inhalation aerosol) 2 Puffs Inhalation every 6 hours as needed Shortness of breath or wheezing. losartan (losartan 50 mg Tab) 1.5 Tablets By Mouth every day. Refills: 0. Misc Prescription (BP machine and regular cuff) Check BP 3x/day for 5 days. Refills: 0. propranolol (propranolol 20 mg Tab) 1 Tablets By Mouth 3 times a day. Refills: 5. PATIENT EDUCATION INFORMATION Instructions: Colonoscopy, Adult, Care After The following information offers guidance on how to care for yourself after your procedure. Your health care provider may also give you more specific instructions. If you have problems or questions, contact your health care provider. What can I expect after the procedure? After the procedure, it is common to have: ? A small amount of blood in your stool for 24 hours after the procedure. ? Some gas. ? Mild cramping or bloating of your abdomen. Follow these instructions at home: Eating and drinking ? Drink enough fluid to keep your urine pale yellow. ? Follow instructions from your health care provider about eating or drinking restrictions. ? Resume your normal diet as told by your health care provider. Avoid heavy or fried foods that are hard to digest. Activity ? Rest as told by your health care provider. ? Avoid sitting for a long time without moving. Get up to take short walks every 1?2 hours. This is important to improve blood flow and breathing. Ask for help if you feel weak or unsteady. ? Return to your normal activities as told by your health care provider. Ask your health care provider what activities are safe for you. Managing cramping and bloating ? Try walking around when you have cramps or feel bloated. ? If directed, apply heat to your abdomen as told by your health care provider. Use the heat source that your health care provider recommends, such as a moist heat pack or a heating pad. ? Place a towel between your skin and the heat source. ? Leave the heat on for 20?30 minutes. ? Remove the heat if your skin turns bright red. This is especially important if you are unable to feel pain, heat, or cold. You have a greater risk of getting burned. General instructions ? If you were given a sedative during the procedure, it can affect you for several hours. Do not drive or operate machinery until your health care provider says that it is safe. ? For the first 24 hours after the procedure: ? Do not sign important documents. ? Do not drink alcohol. ? Do your regular daily activities at a slower pace than normal. ? Eat soft foods that are easy to digest. ? Take [id number]-[id number] and prescription medicines only as told by your health care provider. ? Keep all follow-up visits. This is important. Contact a health care provider if: ? You have blood in your stool 2?3 days after the procedure. Get help right away if: ? You have more than a small spotting of blood in your stool. ? You have large blood clots in your stool. ? You have swelling of your abdomen. ? You have nausea or vomiting. ? You have a fever. (more content not included)... [facility] Patient Education - Texton 0 07-17-2023 Patient Education - Text Radiology Colonoscopy, Adult, Care After The following information offers guidance on how to care for yourself after your procedure. Your health care provider may also give you more specific instructions. If you have problems or questions, contact your health care provider. What can I expect after the procedure? After the procedure, it is common to have: ? A small amount of blood in your stool for 24 hours after the procedure. ? Some gas. ? Mild cramping or bloating of your abdomen. Follow these instructions at home: Eating and drinking ? Drink enough fluid to keep your urine pale yellow. ? Follow instructions from your health care provider about eating or drinking restrictions. ? Resume your normal diet as told by your health care provider. Avoid heavy or fried foods that are hard to digest. Activity ? Rest as told by your health care provider. ? Avoid sitting for a long time without moving. Get up to take short walks every 1?2 hours. This is important to improve blood flow and breathing. Ask for help if you feel weak or unsteady. ? Return to your normal activities as told by your health care provider. Ask your health care provider what activities are safe for you. Managing cramping and bloating ? Try walking around when you have cramps or feel bloated. ? If directed, apply heat to your abdomen as told by your health care provider. Use the heat source that your health care provider recommends, such as a moist heat pack or a heating pad. ? Place a towel between your skin and the heat source. ? Leave the heat on for 20?30 minutes. ? Remove the heat if your skin turns bright red. This is especially important if you are unable to feel pain, heat, or cold. You have a greater risk of getting burned. General instructions ? If you were given a sedative during the procedure, it can affect you for several hours. Do not drive or operate machinery until your health care provider says that it is safe. ? For the first 24 hours after the procedure: ? Do not sign important documents. ? Do not drink alcohol. ? Do your regular daily activities at a slower pace than normal. ? Eat soft foods that are easy to digest. ? Take khaj-fvq-zennjnl and prescription medicines only as told by your health care provider. ? Keep all follow-up visits. This is important. Contact a health care provider if: ? You have blood in your stool 2?3 days after the procedure. Get help right away if: ? You have more than a small spotting of blood in your stool. ? You have large blood clots in your stool. ? You have swelling of your abdomen. ? You have nausea or vomiting. ? You have a fever. ? You have increasing pain in your abdomen that is not relieved with medicine. These symptoms may be an emergency. Get help right away. Call 911. ? Do not wait to see if the symptoms will go away. ? Do not drive yourself to the hospital. Summary ? After the procedure, it is common to have a small amount of blood in your stool. You may also have mild cramping and bloating of your abdomen. ? If you were given a sedative during the procedure, it can affect you for several hours. Do not drive or operate machinery until your health care provider says that it is safe. ? Get help right away if you have a lot of blood in your stool, nausea or vomiting, a fever, or increased pain in your abdomen. This information is not intended to replace advice given to you by your health care provider. Make sure you discuss any questions you have with your health care provider. Document Revised: 12/26/2021 Document Reviewed: 12/26/2021 [employer] Patient Education ? 2022 [employer]. [facility] Progress Note-Physicianon Progress Note-Physician Patient: BLANCO HACKETT Age: 43 years Sex: Male : 1980 Associated Diagnoses: None Author: Mariano Mclean Jr., DO Postoperative Information Postoperative disposition: Postoperative disposition: Home. Optimetrix number: Optimetrix number [id number]. Anesthetic utilized: General. Physical Examination VS/Measurements Pain Assessment: Controlled. General: Awake, Alert, Appropriate. Respiratory: Adequate air exchange, Non-labored. Cardiovascular: Stable, Normal peripheral perfusion. Neurological: Neurologic exam at baseline. No changes.. Assessment Anesthetic outcome No anesthetic complications noted. No nausea/vomiting. Review / Management Condition: Stable. Plan Transfer/Discharge: Transfer/Discharge Discharge when meets criteria ( From PACU to Ambulatory Surgery Unit, and To home ). [facility] Comment on above: Result Comment: Elec tronically Signed By: Mariano Mclean Jr., DO\.br\Date and Time Signed: 07/17/23 15:02 EST Progress Note-Physician Patient: BLANCO HACKETT Age: 43 years Sex: Male : 1980 Associated Diagnoses: None Author: Mariano Mclean Jr., DO Preoperative Information Anesthesia history: Patient history: No prior anesthetic problems. Informed consent: Signed by patient. Re-evaluation prior to induction: Initial evaluation reviewed: No significant change. Review of Systems Respiratory: Negative except as documented in history of present illness. Cardiovascular: Negative except as documented in history of present illness. Health Status Allergies: Allergic Reactions (Selected) No Known Allergies, Allergies (1) Active Severity Reaction No Known Allergies None Documented Current medications: (Selected) Inpatient Medications Ordered Sodium Chloride 0.9% IV Lilia 1000 mL 1,000 mL: 1,000 mL, IV, 20 mL/hr, Routine, Start date 07/17/23 12:26:00 EST, 50 hour(s), Total volume (mL): 1,000, 102 kg, 2.31, m2 Prescriptions Prescribed BP machine and regular cuff: BP machine and regular cuff, See Instructions, 1 EA, 0, Check BP 3x/day for 5 days, Supply losartan 50 mg Tab: 75 mg = 1.5 tab(s), Oral, Daily, # 30 tab(s), Refills(s) 0, Pharmacy: [id number], 188, cm, 06/17/23 9:26:00 EST, Height/Length Dosing, 100.7, kg, 06/17/23 9:26:00 EST, Weight Dosing propranolol 20 mg Tab: 20 mg = 1 tab(s), Oral, TID, # 90 tab(s), Refills(s) 5, Pharmacy: [id number], 188, cm, 07/08/23 9:16:00 EST, Height/Length Dosing, 102, kg, 07/08/23 9:16:00 EST, Weight Dosing Documented Medications Documented Albuterol (Eqv-ProAir HFA) 90 mcg/inh inhalation aerosol: 2 puff(s), Inhalation, q6hr Shortness of breath or wheezing, Refill(s) 0, Home Medications (4) Active Albuterol (Eqv-ProAir HFA) 90 mcg/inh inhalation aerosol 2 puff(s), PRN, Inhalation, q6hr BP machine and regular cuff See Instructions losartan 50 mg Tab 75 mg = 1.5 tab(s), Oral, Daily propranolol 20 mg Tab 20 mg = 1 tab(s), Oral, TID , Medications (1) Active Scheduled: (0) Continuous: (1) Sodium Chloride 0.9% 1,000 mL 1,000 mL, IV, 20 mL/hr PRN: (0) Problem list: All Problems BMI 28.0-28.9,adult / SNOMED CT 5404925591 / Confirmed Essential tremor / SNOMED CT 2652843648 / Confirmed Hematuria / SNOMED CT 323103653 / Confirmed Hyperlipidemia / SNOMED CT 91422675 / Confirmed Hypertension / SNOMED CT 2376554284 / Confirmed Overweight / SNOMED CT 192148591 / Confirmed Screening for colon cancer / SNOMED CT 685448033 / Confirmed Smoker / IMO 410136 / Confirmed Added secondary to documentation in Social History. Resolved: Appendicitis / SNOMED CT 945939951 Resolved: Hypertension / SNOMED CT 42035509 Resolved: None / SNOMED CT 088027116 Canceled: Annual visit for general adult medical examination with abnormal findings / SNOMED CT 621160074 Histories Past Medical History: Resolved None (318713841): Resolved. Appendicitis (341902105): Resolved. Hypertension (77116620): Resolved. Procedure history: Appendectomy (825340254) in 1996 at 16 Years. 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 Physical Examination Vital Signs 07/17/2023 12:54 EST Temperature Temporal Artery 36.2 DegC LOW Heart Rate Monitored 65 bpm Respiratory Rate Monitored 11 br/min Systolic Blood Pressure 121 mmHg Diastolic Blood Pressure 79 mmHg Blood Pressure Location Left arm SpO2 98 % Measurements from flowsheet : Measurements 07/17/2023 12:56 EST Height/Length Measured 188 cm BSA Measured 2.31 m2 Body Mass Index Measured 28.86 kg/m2 Weight Measured 102 kg 07/17/2023 12:27 EST Height/Length Measured 188 cm Height/Length Dosing 188.0 cm Weight Dosing 102.0 kg Weight Measured 102 kg Airway: Mallampati classification: II (soft palate, fauces, uvula visible). Respiratory: Lungs are clear to auscultation, Respirations are non-labored. Cardiovascular: Regular rhythm. Plan [place] [employer] Anesthesiologists (ASA) physical status classification: Class III. Anesthetic Preoperative Plan: Anesthesia General, and -TIVA. Normal [facility] Comment on above: Result Comment: Elec tronically Signed By: Mariano Mclean Jr., DO.myriam\Date and Time Signed: 07/17/23 13:10 EST Provider Letteron 07-14-2023 Provider Letter July 14, 2023 BLANCO HACKETT [address] [place] [address] : 1980 To Whom It May Concern, Please excuse above patient from work 07/16/23 and 07/17/23 for a hospital procedure. 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 male here for screening colonoscopy Dr. Flores referring Last colonoscopy- None Denies family history of colon cancer He states he has BR blood when wiping. This is consistent in time and a small amount. Symptoms started 8 months prior Denies rectal pain/abdominal pain/black stools/constipation History of Present Illness Blanco Hackett is a 43-year-old male who was referred to us for a screening colonoscopy with a remote history of blood per rectum. The patient had noticed some bright red blood per rectum 8 months ago, which has since resolved. He was suspected to have hemorrhoids. It was never painful. He denies rapid onset weight loss, melena, or hematochezia at this time. He denies pain with defecation. He denies straining with defecation. He denies family history of colon cancer in a first degree sibling or parent. Review of Systems PHQ Score Initial Depression Screen Score: 0 SCORE Constitutional: No fever, no sweats, no weight loss. Eyes: No glasses, no blurred vision, no visual loss. ENMT: No dentures, no hoarseness, no swallowing difficulties, no hearing loss, no ear infection(s), no nose bleeds. Cardiovascular: Normal blood pressure, no chest pain, regular heartbeat, no heart murmur. Respiratory: No shortness of breath, no cough, no wheezing, no asthma. Gastrointestinal: No nausea, no vomiting, no diarrhea, no constipation, no blood in stool, no change in bowel habits, no abdominal pain, no hepatitis. Genitourinary: No kidney stones, no urine infection, no difficulty passing urine. Musculoskeletal: No pain, no weakness. Skin: No changing moles, no rash, no skin lumps. Neurologic: No seizures, no epilepsy, no headache. Psychiatric: No emotional, no psychiatric problem. Endocrine: No thyroid, no diabetes. Heme/Lymph: No bleeding problems, no anemia, no blood clots, no transfusions. Allergy/Immunologic: No swollen lymph nodes/glands, no IV drug abuse. Other: Additional ROS info: Except as noted in the above Review of Systems and in the History of Present Illness, all other systems have been reviewed and are negative or noncontributory. Physical Exam Vitals & Measurements HR: 73(Peripheral) BP: 136/91 HT: 74 in HT: 188 cm WT: 102 kg WT: 224.4 lb BMI: 28.86 General: No acute distress Respiratory: Unlabored breathing on room air Cardiac: Regular rate and rhythm Abdomen: Soft nontender nondistended Assessment/Plan 1. Screening for colon cancer (Z12.11: Encounter for screening for malignant neoplasm of colon) We will proceed with a screening colonoscopy at this time. 2. BMI 28.0-28.9,adult (Z68.28: Body mass index [BMI] 28.0-28.9, adult) 3. Overweight (E66.3: Overweight) 4. Smoker (F17.200: Nicotine dependence, unspecified, uncomplicated) Portions of this record may have been created with voice recognition artificial intelligence software, specifically [employer], [employer] and or [employer]. Substitutions may have occurred due to the inherent limitations of voice recognition and artificial intelligence software. ATTESTATION: Documentation services were performed after patient or guardian consented to allow [email or web address] to record this visit. KYLIE allergy specialist and provider reviewed before signing. KYLIE: Mkiaela Cilocilo Follow-up No qualifying data available Problem List/Past Medical History Ongoing BMI 28.0-28.9,adult Essential tremor Hematuria Hyperlipidemia Hypertension Overweight Screening for colon cancer Smoker Historical Appendicitis Hypertension None Procedure/Surgical History Appendectomy (1996). 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 Never Smokeless Tobacco Use:. Cigarettes, Yes, 07/08/2023 Family History Diabetes mellitus type 2: Grandparent. Primary malignant neoplasm of lung: Mother. Immunizations Vaccine Date Status Comments influenza virus vaccine, inactivated - Not Given Postpone due to refusal influenza virus vaccine, inactivated - Not Given Postpone due to refusal tetanus toxoid 2022 Recorded SARS-CoV-2 (COVID-19) mRNA-1273 vaccine 2020 Recorded patient states had the first 2 va (more content not included)... [facility] Comment on above: Result Comment: Elec tronically Signed By: Cristhian Murray MD\.br\Date and Time Signed: 07/08/23 10:32 EST\.br\Electronically Co-Signed By: Mikaela Perez\.br\Date and Time Co-Signed: 07/08/23 09:47 EST Insurance Correspondenceon 0 07-08-2023 Insurance Correspondence [id number]# 1.00TIFF [facility] Physician Referralon 024 Physician Referral [id number]#1 .00TIFF [facility] Family Medicine Office/Clini c Noteon 06-17-2023 Family Medicine Office/Clinic Note Chief Complaint 2 week follow up HPI Staff Patient here today for 2 week follow up and review labs. Essential tremor: Improved started Propranolol last visit Patient is here for follow up on hypertension. How often are you checking your blood pressure? Daily What are your average readings? patient has blood pressure log Do you have any of the following symptoms: Chest Pain? no Palpitations? no ALEMAN/SOB? no Headache? yes Peripheral Edema? no Light Headedness? yes when taking the Losartan 100mg Health Maintenance: Last Labs: 06/03/2023 History of Present Illness The patient is a 42-year-old male presenting today for 2-week follow-up and reviewing lab work. His blood pressure has been high since he had to cut his losartan in half because he took 100 mg and it was getting too low. He does not feel better when he takes 50 mg because his blood pressure is still running high. When he took 100 mg, he felt dizzy and foggy. When he takes 50 mg with propranolol, his blood pressure is high when he wakes up. His salt intake and stress level are good. He drinks 3 regular cups of coffee in the morning. His tremors are gone on propranolol 20 mg 3 times a day. He had fatigue for 4 days and was falling asleep at work, but that has resolved. He had dry cough with lisinopril. He has not tried amlodipine or hydrochlorothiazide. He has a little headache. He denies night sweats. His girlfriend feels comfortable and lives with him. He denies unintentional weight gain or weight loss. He denies sudden reduction in appetite or increase in appetite. Review of Systems PHQ Score Initial Depression Screen Score: 0 SCORE Negative except as noted in the HPI Physical Exam Vitals & Measurements HR: 77(Peripheral) BP: 134/94 SpO2: 98% HT: 74 in HT: 188 cm WT: 100.7 kg WT: 221.54 lb BMI: 28.49 General: Alert. Not in acute cardiopulmonary distress. Well hydrated, well developed, well nourished. Mental Status: Awake and Oriented to person, place, time, and situation. Normal affect. Normal mood. Normal interaction. Good eye contact. Head: Normocephalic, atraumatic. Eyes: Conjunctiva pink. Sclera white. Pupils are equal, round and reactive to light. Extraocular muscles intact. Respiratory: Spontaneous non-labored respirations. Symmetric chest expansion. Equal bilateral aeration. Clear to auscultation. No wheezing, rales or rhonchi. Cardiovascular: Heart sounds normal. No thrills. Regular rate and rhythm, no murmurs, rubs or gallops. Radial pulse 2+ bilaterally. Posterior tibial pulse 2+ bilaterally. Dorsalis pedis pulse 2+ bilaterally. Gastrointestinal: Abdomen non-distended. Normal bowel sounds. Soft, non-tender to palpation. No pulsatile mass. No hepatosplenomegaly. Neurologic: Cranial nerves II-XII grossly intact. No focal neurological deficits. Deep tendon reflexes +2 bilaterally. Moves all extremities spontaneously. Sensation intact bilaterally. Skin: Warm, not moist, no dry scaling. No rashes or lesions. No petechiae or purpura. No edema. Musculoskeletal: No cyanosis or clubbing. No gross deformities. Normal range of motion. Assessment/Plan Vitals aside from blood pressure within normal limits 1. Hypertension (I10: Essential (primary) hypertension) Blood pressure 118/90, he is on losartan 100 mg oral daily, when his blood pressure was close to 120/80 or lower he was having dizziness and lightheadedness He reduced his losartan to 50 mg oral daily and his blood pressure was a little bit elevated closer to about 140/90 and he is having a headache I have adjusted his losartan dosage to 75 mg daily, patient is advised to continue checking his blood pressure at home Ordered: losartan, 75 mg = 1.5 tab(s), Oral, Daily, # 30 tab(s), Refills(s) 0, Pharmacy: [facility], 188, cm, 06/17/23 9:26:00 EST, Height/Length Dosing, 100.7, kg, 06/17/23 9:26:00 EST, Weight Dosing E&M of Est. Patient High 40-54 Min 74679 2. Hematuria (R31.9: Hematuria, unspecified) Urinalysis had trace blood, patient smokes cigarettes, repeating urinalysis Ordered: E&M of Est. Patient High 40-54 Min 63390 UA With Cult Reflex 3. Essential tremor (G25.0: Essential tremor) On propranolol 20 mg oral 3 times a day, denies side effects, continue taking as prescribed Ordered: E&M of Est. Patient High 40-54 Min 73161 4. Hyperlipidemia (E78.5: Hyperlipidemia, unspecified) LDL cholesterol elevated at 135, educated on healthy physical activity nutrition and lifestyle practices Ordered: E&M of Est. Patient High 40-54 Min 39703 5. Smoker (F17.200: Nicotine dependence, unspecified, uncomplicated) Advised to refrain from use Spent 4 minutes on smoking cessation Ordered: E&M of Est. Patient High 40-54 Min 13160 Tobacco Use Cessation Intermediate 3-10 Minutes 33348 6. Overweight (E66.3: Overweight) Educated on healthy physical activity nutrition and lifestyle practices Ordered: E&M of Est. Patient High 40-54 Min 79034 7. BMI 28.0-28.9,lexi (more content not included)... Normal [facility] Comment on above: Result Comment: Elec tronically Signed By: Wood Flores MD\.br\Date and Time Signed: 06/17/23 11:03 EST UA With Cult Reflexon 2023 Bilirubin Ql (U) Negative Normal Negative [facility] Comment on above: Performed By: #### 1 [id number] ####[facility] [address] [place] [address] Clarity (U) CLEAR Normal Clear [facility] Comment on above: Performed By: #### 1 [id number] ####[facility] [address] [place] [address] Color (U) YELLOW Normal Yellow [facility] Comment on above: Performed By: #### 1 [id number] ####[facility] [address] [place] [address] Epithelial cells.squamous LM.HPF (Urine sed) [#/Area] 0-2 Normal 0-2 [facility] Comment on above: Performed By: #### 1 [id number] ####[facility] [address] [place] [address] Glucose Test strip (U) [Mass/Vol] Negative Normal Negative [facility] Comment on above: Performed By: #### 1 [id number] ####[facility] [address] [place] [address] Hemoglobin Ql (U) TRACE Abnormal Negative [facility] Comment on above: Performed By: #### 1 [id number] ####[facility] [address] [place] [address] Ketones (U) [Mass/Vol] Negative Normal Negative [facility] Comment on above: Performed By: #### 1 [id number] ####[facility] [address] [address] [place].plasma/Lithiu m.RBC (Bld) [Mass ratio] 0-3 Normal 0-3 [facility] Comment on above: Performed By: #### 1 [id number] ####[address] [address] Nitrite Ql (U) Negative Normal Negative [facility] Comment on above: Performed By: #### 1 [id number] ####[place] [address] pH (U) 6.0 [pH] Invalid Interpretation Code 5.0-9.0 [facility] Comment on above: Performed By: #### 1 [id number] ####[place] [address] Protein (U) [Mass/Vol] Negative Normal Negative [facility] Comment on above: Performed By: #### 1 [id number] ####[place] [address] Specific gravity (U) [Rel density] 1.020 Invalid Interpretation Code 1.005-1.030 [facility] Comment on above: Performed By: #### 1 [id number] ####[place] [address] Type of Urine collection method Clean Catch Normal [facility] Comment on above: Performed By: #### 1 [id number] ####[address] [address] Urobilinogen Qn (U) 0.2 {Rigo'U}/dL Normal 0.0-1.0 [facility] Comment on above: Performed By: #### 1 [id number] ####[address] [address] WBC Auto Ql (U) Negative Normal Negative [facility] Comment on above: Performed By: #### 1 [id number] ####[address] [address] WBC LM.HPF (Urine sed) [#/Area] 0-5 Normal 0-5 [facility] Comment on above: Performed By: #### 1 [id number] ####[facility] [address] [place] [address] URINALYSISOrdered By: Netta Guajardo on 06-17-2023 Bilirubin Ql (U) Negative (06/17/23 10:27 AM) Normal Negative [facility] UA Auto SS Clarity (U) Clear (06/17/23 10:27 AM) Normal Clear [facility] UA Auto SS Color (U) Yellow (06/17/23 10:27 AM) Normal Yellow [facility] UA Auto SS Epithelial cells.squamous LM.HPF (Urine sed) [#/Area] 0-2 /HPF Normal 0-2/HPF [facility] UA Aut o SS Glucose Test strip (U) [Mass/Vol] Negative (06/17/23 10:27 AM) Normal Negative [facility] UA Auto SS Hemoglobin Ql (U) Trace *ABN* (06/17/23 10:27 AM) Invalid Interpretation Code Negative [facility] UA Auto SS Ketones (U) [Mass/Vol] Negative (06/17/23 10:27 AM) Normal Negative [facility] UA Auto SS [place].plasma/Lithiu m.RBC (Bld) [Mass ratio] 0-3 /HPF Normal 0-3/HPF [facility] UA Auto SS Nitrite Ql (U) Negative (06/17/23 10:27 AM) Normal Negative [facility] UA Auto SS pH (U) 6.0 *NA* (06/17/23 10:27 AM) Invalid Interpretation Code 5.0 - 9.0 [facility] UA Auto SS Protein (U) [Mass/Vol] Negative (06/17/23 10:27 AM) Normal Negative [facility] UA Auto SS Specific gravity (U) [Rel density] 1.020 *NA* (06/17/23 10:27 AM) Invalid Interpretation Code 1.005 - 1.030 [facility] UA Auto SS UA Spec Desc Clean Catch (06/17/23 10:27 AM) Normal [facility] UA Auto SS Urobilinogen Qn (U) 0.6311937 {Rigo'U}/dL Normal 0.0 - 1.0 EU/dL [facility] UA Auto SS WBC Auto Ql (U) Negative (06/17/23 10:27 AM) Normal Negative [facility] UA Auto SS WBC LM.HPF (Urine sed) [#/Area] 0-5 /HPF Normal 0-5/HPF [facility] UA Auto SS Nurse Consultation Noteon Nurse Consultation Note Reason for Visit pt came in for bp cuff check, his was 142/91 ours was 142/94 manually. Medications Albuterol (Eqv-ProAir HFA) 90 mcg/inh inhalation aerosol, 2 puff(s), Inhalation, q6hr, PRN BP machine and regular cuff, See Instructions losartan 50 mg Tab, 100 mg= 2 tab(s), Oral, Daily propranolol 20 mg Tab, 20 mg= 1 tab(s), Oral, TID Allergies No Known Allergies Immunizations Vaccine Date Status Comments influenza virus vaccine, inactivated - Not Given Postpone due to refusal tetanus toxoid 2022 Recorded SARS-CoV-2 (COVID-19) mRNA-1273 vaccine 2020 Recorded patient states had the first 2 vaccines Normal [facility] Auto Diffon 06-03-2023 Basophils/100 WBC (Bld) 0.3 % Normal 0.0-2.0 [facility] Comment on above: Order Comment: Order Added by Discern Expert. Performed By: #### 2 160432, 0104841, 68515174, 7273535, 1155747, 60760923 ####[facility] [address] [place] [address] Basophils/Leukocytes Auto (Bld) [Pure # fraction] 0.0 E9/L Normal 0.0-0.2 [facility] Comment on above: Order Comment: Order Added by Discern Expert. Performed By: #### 2 731859, 6358036, 26595540, 7068599, 4018819, 57385145 ####[facility] [address] [place] [address] Eosinophils/100 WBC (Bld) 1.3 % Normal 0.0-8.0 [facility] Comment on above: Order Comment: Order Added by Discern Expert. Performed By: #### 2 025369, 5847653, 74190359, 6228100, 7307935, 53391392 ####[facility] [address] [place] [address] Eosinophils/Leukocyte s Auto (Bld) [Pure # fraction] 0.1 E9/L Normal 0.0-0.5 [facility] Comment on above: Order Comment: Order Added by Discern Expert. Performed By: #### 2 270000, 2844432, 80323790, 8553180, 5947942, 03823222 ####[address] [place] [address] Lymphocytes/100 WBC (Bld) 28.5 % Normal 14.0-50.0 [facility] Comment on above: Order Comment: Order Added by Discern Expert. Performed By: #### 2 347068, 3955810, 66424524, 2537221, 4382071, 85671688 ####[address] [address] Lymphocytes/Leukocyte s Auto (Bld) [Pure # fraction] 1.9 E9/L Normal 1.0-4.0 [facility] Comment on above: Order Comment: Order Added by Discern Expert. Performed By: #### 2 339443, 7173439, 40647694, 0132261, 1796458, 40464074 ####[address] [address] Monocytes/100 WBC (Bld) 6.2 % Normal 4.0-14.0 [facility] Comment on above: Order Comment: Order Added by Discern Expert. Performed By: #### 2 480686, 9895667, 00102282, 3223344, 1198282, 46337496 ####[address] [place] [address] Monocytes/Leukocytes Auto (Bld) [Pure # fraction] 0.4 E9/L Normal 0.2-1.0 [facility] Comment on above: Order Comment: Order Added by Discern Expert. Performed By: #### 2 340711, 1871755, 25728706, 0534269, 5807527, 32924393 ####[address] [address] Neutrophils/100 WBC (Bld) 63.7 % Normal 36.0-75.0 [facility] Comment on above: Order Comment: Order Added by Discern Expert. Performed By: #### 2 693731, 6582047, 96469887, 7545351, 3904383, 90224159 ####[facility] [address] [place] [address] Neutrophils/Leukocyte s Auto (Bld) [Pure # fraction] 4.1 E9/L Normal 2.0-7.5 [facility] Comment on above: Order Comment: Order Added by Discern Expert. Performed By: #### 2 162911, 4877904, 86192677, 5119383, 5868857, 57579601 ####[address] [address] CBC w/ Auto Diffon Erythrocyte distribution width (RBC) [Ratio] 13.9 % Normal 10.9-14.2 [facility] Comment on above: Performed By: #### 2 613531, 0210061, 24674939, 0696200, 7842640, 61906340 ####[address] [place] [address] Hematocrit (Bld) [Volume fraction] 45.8 % Normal 37.7-49.0 [facility] Comment on above: Performed By: #### 2 182264, 5261059, 69615745, 2169482, 2428874, 78571059 ####[address] [place] [address] Hemoglobin (Bld) [Mass/Vol] 15.5 g/dL Normal 13.5-17.5 [facility] Comment on above: Performed By: #### 2 916189, 1452221, 01160572, 3087440, 7976932, 28736257 ####[address] [place] [address] MCH (RBC) [Entitic mass] 30.8 pg Normal 27.0-34.0 [facility] Comment on above: Performed By: #### 2 730384, 5069267, 93785000, 6578837, 5200376, 66937833 ####[address] [place] [address] MCHC (RBC) [Mass/Vol] 33.9 g/dL Normal 31.4-36.0 [facility] Comment on above: Performed By: #### 2 144912, 6735095, 91227971, 0109017, 8511000, 00939181 ####[address] [address] MCV (RBC) [Entitic vol] 90.9 fL Normal 80.0-100.0 [facility] Comment on above: Performed By: #### 2 798285, 5934436, 52623947, 3981044, 7319006, 44360327 ####[address] [address] Platelet mean volume (Bld) [Entitic vol] 8.3 fL Normal 6.4-10.8 [facility] Comment on above: Performed By: #### 2 174117, 1647933, 77183561, 8277142, 8588096, 08431801 ####[address] [address] Platelets (Bld) [#/Vol] 277.0 E9/L Normal 150.0-500.0 [facility] Comment on above: Performed By: #### 2 104624, 9147464, 70632348, 2645731, 6672150, 61680060 ####[address] [address] RBC (Bld) [#/Vol] 5.0 E12/L Normal 4.3-5.9 [facility] Comment on above: Performed By: #### 2 020227, 1538730, 56591558, 6429581, 1588870, 64137564 ####[address] [address] WBC corrected for nucl RBC Auto (Bld) [#/Vol] 6.5 E9/L Normal 4.0-11.0 [facility] Comment on above: Performed By: #### 2 520348, 2093717, 15780562, 0864912, 4416270, 52417646 ####[facility] [address] [place] [address] CHEMISTRYOrdered By: SYSTEM SYSTEM on 06-03-2023 Albumin [Mass/Vol] 4.1 g/dL Normal 3.3 - 5.0 gm/dL [facility] Albumin/Globulin [Mass ratio] 1.8 {ratio} Normal 1.1 - 2.2 [facility] Alk Phos 67 [iU]/d Normal 21 - 98 Int._Unit/L [facility] ALT 21 [iU]/d Normal 6 - 46 Int._Unit/L [facility] Anion gap [Moles/Vol] 10 mmol/L Normal 6 - 16 mEq/L R emisol Chem AST 17 [iU]/d Normal 5 - 43 Int._Unit/L [facility] Bili Total 0.6 mg/dL Normal 0.0 - 1.1 mg/dL [facility] Calcium [Mass/Vol] 9.4 mg/dL Normal 8.9 - 11. 1 mg/dL [facility] Chloride [Moles/Vol] 104 mmol/L Normal 101 - 1 11 mmol/L [facility] Cholesterol [Mass/Vol] 188 mg/dL Normal 120 - 200 mg/dL [facility] Cholesterol in HDL [Mass/Vol] 37 mg/dL Invalid Interpretation Code [facility] Comment on above: Result Comment: '>= 60 LOW RISK' '<= 40 HIGH RISK' Cholesterol in LDL [Mass/Vol] 135 mg/dL High <=129mg/dL [facility] Cholesterol in VLDL [Mass/Vol] 22 mg/dL Normal 7 - 40 mg/dL [facility] CO2 [Moles/Vol] 27 mmol/L Normal 21 - 31 mmol/L [facility] Creatinine [Mass/Vol] 0.7 mg/dL Normal 0.5 - 1.3 mg/dL [facility] eGFR 116 mL/min/1.73 m2 Normal >=59mL/mi n/1 .73 m2 [facility] Globulin (S) [Mass/Vol] 2.3 g/dL Normal 1.4 - 4.0 gm/dL [facility] Glucose [Mass/Vol] 97 mg/dL Normal 55 - 199 mg/dL [facility] Potassium [Moles/Vol] 3.9 mmol/L Normal 3.5 - 5.3 mmol/L [facility] Protein [Mass/Vol] 6.4 g/dL Normal 6.0 - 7.8 gm/dL [facility] Sodium [Moles/Vol] 137 mmol/L Normal 135 - 145 mmol/L [facility] Triglyceride [Mass/Vol] 112 mg/dL Normal <=149mg/dL [facility] TSH Qn 1.02 m[IU]/L Normal 0.34 - 5.60 mcIU/mL [facility] Urea nitrogen [Mass/Vol] 17 mg/dL Normal 5 - 21 mg/dL [facility] Urea nitrogen/Creatinine [Mass ratio] 24 mg/mg High 10 - 20 [facility] CMPon 06-03-2023 Albumin [Mass/Vol] 4.1 g/dL Normal 3.3-5.0 [facility] Comment on above: Performed By: #### 2 501522, 8423697, 87619548, 8169008, 3024209, 44735782 ####[facility] [address] [place] [address] Albumin/Globulin [Mass ratio] 1.8 {ratio} Normal 1.1-2.2 [facility] Comment on above: Performed By: #### 2 396151, 0074525, 94169052, 5191776, 5828296, 65072960 ####[facility] [address] [place] [address] Alk Phos 67 Int._Unit/L Normal 21-98 [facility] Comment on above: Performed By: #### 2 374970, 2204791, 26138682, 9331320, 5077167, 63385273 ####[facility] [address] [place] [address] ALT 21 Int._Unit/L Normal 6-46 [facility] Comment on above: Performed By: #### 2 376039, 9201558, 16901284, 4031872, 1747802, 26470252 ####[facility] [address] [place] [address] Anion gap [Moles/Vol] 10 mmol/L Normal 6-16 [facility] Comment on above: Performed By: #### 2 101973, 6474635, 99838202, 3611851, 7751309, 91251807 ####[facility] [address] [place] [address] AST 17 Int._Unit/L Normal 5-43 [facility] Comment on above: Performed By: #### 2 781096, 7564748, 10374739, 0687396, 7051783, 83004063 ####[address] [place] [address] Bili Total 0.6 mg/dL Normal 0.0-1.1 [facility] Comment on above: Performed By: #### 2 469123, 3366633, 80319172, 3934712, 9252740, 72863981 ####[facility] [address] [place] [address] BUN/Creat Ratio 24 No Units High 10-20 [facility] Comment on above: Performed By: #### 2 079531, 9025668, 77525587, 7783514, 7998755, 29508045 ####[address] [place] [address] Calcium [Mass/Vol] 9.4 mg/dL Normal 8.9-11.1 [facility] Comment on above: Performed By: #### 2 056508, 2619449, 49037230, 0225673, 5323539, 61040236 ####[facility] [address] [place] [address] Chloride [Moles/Vol] 104 mmol/L Normal 101-111 [facility] Comment on above: Performed By: #### 2 636216, 7397903, 11302478, 0859678, 2554179, 06371328 ####[facility] [address] [place] [address] CO2 [Moles/Vol] 27 mmol/L Normal 21-31 [facility] Comment on above: Performed By: #### 2 632341, 4046644, 54482443, 3247917, 7955839, 41287982 ####[facility] [address] [place] [address] Creatinine [Mass/Vol] 0.7 mg/dL Normal 0.5-1.3 [facility] Comment on above: Performed By: #### 2 058071, 4269960, 36348332, 4986902, 8988614, 78731206 ####[facility] [address] [place] [address] Globulin (S) [Mass/Vol] 2.3 g/dL Normal 1.4-4.0 [facility] Comment on above: Performed By: #### 2 991228, 1426141, 29336789, 8452381, 1710143, 36245921 ####[facility] [address] [place] [address] Glucose [Mass/Vol] 97 mg/dL Normal 55-199 [facility] Comment on above: Performed By: #### 2 862752, 6839760, 15416929, 4310243, 3953454, 17752301 ####[facility] [address] [place] [address] Potassium [Moles/Vol] 3.9 mmol/L Normal 3.5-5.3 [facility] Comment on above: Performed By: #### 2 510423, 8388750, 46173375, 0290588, 4334600, 34485912 ####[facility] [address] [place] [address] Protein [Mass/Vol] 6.4 g/dL Normal 6.0-7.8 [facility] Comment on above: Performed By: #### 2 153204, 7762679, 21993733, 3571508, 3686013, 80288502 ####[facility] [address] [place] [address] Sodium [Moles/Vol] 137 mmol/L Normal 135-145 [facility] Comment on above: Performed By: #### 2 485418, 5370919, 79249230, 2594181, 1454756, 14699182 ####[facility] [address] [place] [address] Urea nitrogen [Mass/Vol] 17 mg/dL Normal 5-21 [facility] Comment on above: Performed By: #### 2 034719, 8213400, 16973158, 8144611, 8536749, 39866383 ####[facility] [address] [place] [address] Family Medicine Office/Clini c Noteon 06-03-2023 Family Medicine Office/Clinic Note Chief Complaint Establish HPI Staff Patient here today to establish. 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 Viral gastroenteritis: The patient reports that he had a viral gastroenteritis last week. He went to [facility] to get tested but he was not tested and was told he had a viral gastroenteritis. He states he is feeling better. Hypertension: The patient is currently taking losartan 100 mg oral daily. He was previously taking lisinopril 20 mg daily but had a dry cough that would not go away, so he was switched to losartan 100 mg oral daily. He denies any side effects. Lung nodules: The patient has a history of asthma. He states that he uses his albuterol inhaler once a day. He was previously on Stiolto Respimat as a maintenance medication, but he ran out. He has a history of 2 lung nodules that was found 3 years ago. He was told it was not cancerous and was probably caused by rock dust from his work, so he was prescribed the other inhaler. He initially had a CT scan done and then had x-rays done every 6 months for 2 years. His latest x-ray was 1 year ago. He states that he was told they have not grown. He denies any difficulty breathing, chest discomfort, or coughing up something funny. Essential tremors: The patient states that he gets tremors when he is stressed, when he is reaching for an object, or when he is holding something. He is unsure if it gets worse when he is anxious or when he drinks alcohol. He states that he drinks alcohol once a week. Review of Systems PHQ Score Initial Depression Screen Score: 0 SCORE Negative except as stated in HPI. Physical Exam Vitals & Measurements HR: 82(Peripheral) BP: 120/80 SpO2: 99% HT: 74 in HT: 188 cm WT: 101.1 kg WT: 222.42 lb BMI: 28.6 General: Alert. Not in acute cardiopulmonary distress. Well hydrated, well developed, well nourished. Head: Normocephalic, atraumatic. Eyes: Conjunctiva pink. Sclera white. Pupils are equal, round and reactive to light. Extraocular muscles intact. Ear, Nose and Throat: Oropharynx clear, mucous membranes moist. Ears and nose without masses, lesions or deformities. Tympanic membranes clear bilaterally. Trachea midline. Neck: Supple, Full range of motion. Respiratory: Spontaneous non-labored respirations. Symmetric chest expansion. Equal bilateral aeration. Clear to auscultation. No wheezing, rales or rhonchi. Cardiovascular: Heart sounds normal. No thrills. Regular rate and rhythm, no murmurs, rubs or gallops. Radial pulse 2+ bilaterally. Posterior tibial pulse 2+ bilaterally. Dorsalis pedis pulse 2+ bilaterally. Gastrointestinal: Abdomen non-distended. Normal bowel sounds. Soft, non-tender to palpation. No pulsatile mass. No hepatosplenomegaly. Genitourinary: No suprapubic or costovertebral angle tenderness. Neurologic: Cranial nerves II-XII grossly intact. No focal neurological deficits. Deep tendon reflexes +2 bilaterally. Moves all extremities spontaneously. Sensation intact bilaterally. Skin: Warm, not moist, no dry scaling. No rashes or lesions. No petechiae or purpura. No edema. Musculoskeletal: No cyanosis or clubbing. No gross deformities. Normal range of motion. Lymphatics: Palpation of neck reveals no swelling or tenderness of neck nodes. Assessment/Plan The patient's vitals are within normal limits. 1. Annual visit for general adult medical examination with abnormal findings (Z00.01: Encounter for general adult medical examination with abnormal findings) Patient has an essential tremor. 2. Hypertension (I10: Essential (primary) hypertension) The patient's blood pressure is 120/80 mmHg. He is on losartan 100 mg oral daily. Denies side effects. He is to continue taking this medication as prescribed, but because we are starting him on propranolol 30 mg 2 times a day for his essential tremor, patient is advised to be tracking his blood pressures. I have ordered him a blood pressure machine. He is advised to bring it in to ensure that's calibrated well. I have given him a log as well to be checking his blood pressures 3 times a day for 5 days, more as necessary. If he feels any symptoms, which he has been educated on, and if his blood pressure goes less than 100/70 mmHg or it is at a higher blood pressure and he has any symptoms, then he is to reduce his losartan to 50 mg while maintaining the propranolol at 30 mg 3 times a day. 3. Essential tremor (G25.0: Essential tremor) The patient's blood pressure is 120/80 mmHg. He is on losartan 100 mg oral daily. Denies side effects. He is (more content not included)... Normal [facility] Comment on above: Result Comment: Elec tronically Signed By: Wood Flores MD\.br\Date and Time Signed: 06/03/23 13:28 EST\.br\Electronically Co-Signed By: Claire Bob\.br\Date and Time Co-Signed: 06/03/23 11:37 EST Formson 06-03-2023 Forms [id number] Normal [facility] HEMATOLOGYOrdered By: SYSTEM SYSTEM on 06-03-2023 Basophils/100 WBC (Bld) 0.3 % Normal 0.0 - 2.0 % [facility] HemeAutoSS Basophils/Leukocytes Auto (Bld) [Pure # fraction] 0.0 E9/L Normal 0.0 - 0.2 E9/L [facility] HemeAutoSS Eosinophils/100 WBC (Bld) 1.3 % Normal 0.0 - 8.0 % [facility] HemeAutoSS Eosinophils/Leukocyte s Auto (Bld) [Pure # fraction] 0.1 E9/L Normal 0.0 - 0.5 E9/L [facility] HemeAutoSS Lymphocytes/100 WBC (Bld) 28.5 % Normal 14.0 - 50.0 % [facility] HemeAutoSS Lymphocytes/Leukocyte s Auto (Bld) [Pure # fraction] 1.9 E9/L Normal 1.0 - 4.0 E9/L [facility] HemeAutoSS Monocytes/100 WBC (Bld) 6.2 % Normal 4.0 - 14.0 % [facility] HemeAutoSS Monocytes/Leukocytes Auto (Bld) [Pure # fraction] 0.4 E9/L Normal 0.2 - 1.0 E9/L [facility] HemeAutoSS Neutrophils/100 WBC (Bld) 63.7 % Normal 36.0 - 75.0 % [facility] HemeAutoSS Neutrophils/Leukocyte s Auto (Bld) [Pure # fraction] 4.1 E9/L Normal 2.0 - 7.5 E9/L [facility] HemeAutoSS HEMATOLOGYOrdered By: Deedee Beard on 06-03-2023 Erythrocyte distribution width (RBC) [Ratio] 13.9 % Normal 10.9 - 14.2 % [facility]eAutoSS Hematocrit (Bld) [Volume fraction] 45.8 % Normal 37.7 - 49.0 % [facility]eAutoSS Hemoglobin (Bld) [Mass/Vol] 15.5 g/dL Normal 13.5 - 17.5 gm/dL [facility]eAutoSS MCH (RBC) [Entitic mass] 30.8 pg Normal 27.0 - 34.0 pg [facility] HemeAutoSS MCHC (RBC) [Mass/Vol] 33.9 g/dL Normal 31.4 - 36.0 gm/dL [facility] HemeAutoSS MCV (RBC) [Entitic vol] 90.9 fL Normal 80.0 - 100.0 fL [facility]eAutoSS Platelet mean volume (Bld) [Entitic vol] 8.3 fL Normal 6.4 - 10.8 fL [facility] HemeAutoSS Platelets (Bld) [#/Vol] 277.0 E9/L Normal 150.0 - 500.0 E9/L [facility]eAutoSS RBC (Bld) [#/Vol] 5.0 E12/L Normal 4.3 - 5.9 E12/L [facility]eAutoSS WBC corrected for nucl RBC Auto (Bld) [#/Vol] 6.5 E9/L Normal 4.0 - 11.0 E9/L [facility] HemeAutoSS Lipid Panelon 06-03-2023 Cholesterol [Mass/Vol] 188 mg/dL Normal 120-200 [facility] Comment on above: Performed By: #### 2 860607, 1339251, 75947838, 3001484, 1935243, 46710144 ####[facility] [address] [place] [address] Cholesterol in HDL [Mass/Vol] 37 mg/dL Invalid Interpretation Code [facility] Comment on above: Result Comment: '>= 60 LOW RISK' '<= 40 HIGH RISK' Performed By: #### 2 303762, 8683102, 78498213, 8744702, 9863294, 60425146 ####[facility] [address] [address] Cholesterol in LDL [Mass/Vol] 135 mg/dL High <=129 [facility] Comment on above: Performed By: #### 2 880034, 3907676, 96524640, 3263613, 6978158, 54724910 ####[facility] [address] [place] [address] Cholesterol in VLDL [Mass/Vol] 22 mg/dL Normal 7-40 [facility] Comment on above: Performed By: #### 2 610504, 6407994, 90152550, 6486996, 6151128, 23851192 ####[facility] [address] [place] [address] Triglyceride [Mass/Vol] 112 mg/dL Normal <=149 [facility] Comment on above: Performed By: #### 2 808810, 4663814, 13091325, 6604539, 8598008, 76738592 ####[facility] [address] [address] TSH With T4fr Reflexon 06-03 TSH Qn 1.02 m[IU]/L Normal 0.34-5.60 [facility] Comment on above: Performed By: #### 2 520023, 1900087, 86312186, 8314772, 7179691, 59863029 ####[facility] [address] [place] [address] URINALYSISOrdered By: Soo Scott on 06-03-2023 Bacteria LM Ql (Urine sed) Trace /HPF Normal Trace/HPF [facility] UA Auto SS Bilirubin Ql (U) Negative (06/03/23 9:25 AM) Normal Negative [facility] UA Auto SS Clarity (U) Clear (06/03/23 9:25 AM) Normal Clear [facility] UA Auto SS Color (U) Yellow (06/03/23 9:25 AM) Normal Yellow [facility] UA Auto SS Crystals LM Ql (Urine sed) Present (06/03/23 9:25 AM) Normal [facility] UA Auto SS Epithelial cells.squamous LM.HPF (Urine sed) [#/Area] 0-2 /HPF Normal 0-2/HPF [facility] UA Aut o SS Glucose Test strip (U) [Mass/Vol] Negative (06/03/23 9:25 AM) Normal Negative [facility] UA Auto SS Hemoglobin Ql (U) Trace *ABN* (06/03/23 9:25 AM) Invalid Interpretation Code Negative [facility] UA Auto SS Ketones (U) [Mass/Vol] Negative (06/03/23 9:25 AM) Normal Negative [facility] UA Auto SS [place].plasma/Lithiu m.RBC (Bld) [Mass ratio] 0-3 /HPF Normal 0-3/HPF [facility] UA Auto SS Nitrite Ql (U) Negative (06/03/23 9:25 AM) Normal Negative [facility] UA Auto SS pH (U) 6.5 *NA* (06/03/23 9:25 AM) Invalid Interpretation Code 5.0 - 9.0 [facility] UA Auto SS Protein (U) [Mass/Vol] Negative (06/03/23 9:25 AM) Normal Negative [facility] UA Auto SS Specific gravity (U) [Rel density] 1.025 *NA* (06/03/23 9:25 AM) Invalid Interpretation Code 1.005 - 1.030 [facility] UA Auto SS UA Spec Desc Clean Catch (06/03/23 9:25 AM) Normal [facility] UA Auto SS Urobilinogen Qn (U) 0.6589969 {Rigo'U}/dL Normal 0.0 - 1.0 EU/dL [facility] UA Auto SS WBC Auto Ql (U) Negative (06/03/23 9:25 AM) Normal Negative [facility] UA Auto SS WBC LM.HPF (Urine sed) [#/Area] 0-5 /HPF Normal 0-5/HPF [facility] UA Auto SS Urinalysison 06-03-2023 Bacteria LM Ql (Urine sed) TRACE Normal Trace [facility] Comment on above: Performed By: #### 1 [id number] ####[facility] [address] [place] [address] Bilirubin Ql (U) Negative Normal Negative [facility] Comment on above: Performed By: #### 1 3860054 ####[facility] [address] [place] [address] Clarity (U) CLEAR Normal Clear [facility] Comment on above: Performed By: #### 1 8515489 ####[facility] [address] [place] [address] Color (U) YELLOW Normal Yellow [facility] Comment on above: Performed By: #### 1 8656682 ####[facility] [address] [place] [address] Crystals LM Ql (Urine sed) Present Normal [facility] Comment on above: Performed By: #### 1 6362796 ####[facility] [address] [place] [address] Epithelial cells.squamous LM.HPF (Urine sed) [#/Area] 0-2 Normal 0-2 [facility] Comment on above: Performed By: #### 1 5877357 ####[facility] [address] [place] [address] Glucose Test strip (U) [Mass/Vol] Negative Normal Negative [facility] Comment on above: Performed By: #### 1 7893445 ####[facility] [address] [place] [address] Hemoglobin Ql (U) TRACE Abnormal Negative [facility] Comment on above: Performed By: #### 1 6365218 ####[address] [address] Ketones (U) [Mass/Vol] Negative Normal Negative [facility] Comment on above: Performed By: #### 1 0733462 ####[address] [address] [place].plasma/Lithiu m.RBC (Bld) [Mass ratio] 0-3 Normal 0-3 [facility] Comment on above: Performed By: #### 1 0462354 ####[address] [address] Nitrite Ql (U) Negative Normal Negative [facility] Comment on above: Performed By: #### 1 8234531 ####[address] [address] pH (U) 6.5 [pH] Invalid Interpretation Code 5.0-9.0 [facility] Comment on above: Performed By: #### 1 6077170 ####[address] [address] Protein (U) [Mass/Vol] Negative Normal Negative [facility] Comment on above: Performed By: #### 1 8460382 ####[address] [address] Specific gravity (U) [Rel density] 1.025 Invalid Interpretation Code 1.005-1.030 [facility] Comment on above: Performed By: #### [id number] ####[address] [address] Type of Urine collection method Clean Catch Normal [facility] Comment on above: Performed By: #### [id number] ####[address] [address] Urobilinogen Qn (U) 0.2 {Rigo'U}/dL Normal 0.0-1.0 [facility] Comment on above: Performed By: #### [id number] ####[address] [place] [address] WBC Auto Ql (U) Negative Normal Negative [facility] Comment on above: Performed By: #### [id number] ####[facility] [id number] [place] [address] WBC LM.HPF (Urine sed) [#/Area] 0-5 Normal 0-5 [facility] Comment on above: Performed By: #### 1 [id number] ####[facility] [id number] [place] [address] eGFRon 06-03-2023 eGFR 116 mL/min/1.73 m2 Normal >=59 [facility] Comment on above: Order Comment: Order added by Discern Expert. Performed By: #### [id number] ####[id number] [place] [address] Vital Signs Date Time Vital Sign Value Performing Clinician Facility 02-23-2024 13:24-0400 Diastolic blood pressure 82 mm[Hg] Wood Gudimella [facility] 02-23-2024 13:24-0400 Mean blood pressure 95 mm[Hg] Wood Gudimella [facility] 02-23-2024 13:24-0400 Systolic blood pressure 122 mm[Hg] Wood Gudimella [facility] 02-23-2024 12:29-0400 Blood Pressure Location Wood Gudimella [facility] 02-23-2024 12:29-0400 Diastolic blood pressure 90 mm[Hg] Wood Gudimella [facility] 02-23-2024 12:29-0400 Heart rate 66 /min Wood Gudimella [facility] 02-23-2024 12:29-0400 SaO2% (BldA) [Mass fraction] 96 % Wood Gudimella [facility] 02-23-2024 12:29-0400 Systolic blood pressure 130 mm[Hg] Wood Gudimella [facility] 08-04-2023 13:34-0400 Body temperature 102.56 [degF] Wood Gudimella [facility] 08-04-2023 13:34-0400 Diastolic blood pressure 76 mm[Hg] Wood Gudimella [facility] 08-04-2023 13:34-0400 Heart rate 80 /min Wood Gudimella [facility] 08-04-2023 13:34-0400 SaO2% (BldA) [Mass fraction] 95 % Wood Gudimella [facility] 08-04-2023 13:34-0400 Systolic blood pressure 110 mm[Hg] Wood Gudimella [facility] 07-17-2023 14:55-0500 Diastolic blood pressure 76 mm[Hg] Cristhian Mourany [facility] 07-17-2023 14:55-0500 Heart rate 60 /min Cristhian Mourany [facility] 07-17-2023 14:55-0500 Respiratory rate 21 /min Cristhian Mourany [facility] 07-17-2023 14:55-0500 SaO2% (BldA) [Mass fraction] 99 % Cristhian Mourany [facility] 07-17-2023 14:55-0500 Systolic blood pressure 117 mm[Hg] Cristhian Mourany [facility] 07-17-2023 14:45-0500 Diastolic blood pressure 76 mm[Hg] Cristhian Mourany [facility] 07-17-2023 14:45-0500 Heart rate 64 /min Cristhian Mourany [facility] 07-17-2023 14:45-0500 Respiratory rate 15 /min Cristhian Mourany [facility] 07-17-2023 14:45-0500 SaO2% (BldA) [Mass fraction] 98 % Cristhian Mourany [facility] 07-17-2023 14:45-0500 Systolic blood pressure 117 mm[Hg] Cristhian Mourany [facility] 07-17-2023 14:40-0500 Diastolic blood pressure 81 mm[Hg] Cristhian Mourany [facility] 07-17-2023 14:40-0500 Heart rate 68 /min Cristhian Mourany [facility] 07-17-2023 14:40-0500 Respiratory rate 13 /min Cristhian Mourany [facility] 07-17-2023 14:40-0500 SaO2% (BldA) [Mass fraction] 99 % Cristhian Mourany [facility] 07-17-2023 14:40-0500 Systolic blood pressure 116 mm[Hg] Cristhian Mourany [facility] 07-17-2023 14:30-0500 Body temperature 98.06 [degF] Cristhian Mourany [facility] 07-17-2023 14:24-0500 Respiratory rate 16 /min Cristhian Mourany [facility] 07-17-2023 14:20-0500 Respiratory rate 20 /min Cristhian Mourany [facility] 07-17-2023 14:15-0500 Respiratory rate 20 /min Cristhian Mourany [facility] 07-17-2023 12:54-0500 Blood Pressure Location Cristhian Mourany [facility] 07-17-2023 12:54-0500 Body temperature 97.16 [degF] Cristhian Mourany [facility] 07-08-2023 09:14-0500 Diastolic blood pressure 91 mm[Hg] Cristhian Mourany [facility] [place] 07-08-2023 09:14-0500 Heart rate 73 /min Cristhian Mourany [facility] [place] 07-08-2023 09:14-0500 Systolic blood pressure 136 mm[Hg] Cristhian Mourany [facility] 06-17-2023 10:23-0500 Diastolic blood pressure 94 mm[Hg] Wood Gudimella [facility] 06-17-2023 10:23-0500 Mean blood pressure 107 mm[Hg] Wood Gudimella [facility] 06-17-2023 10:23-0500 Systolic blood pressure 134 mm[Hg] Wood Gudimella [facility] 06-17-2023 09:23-0500 Blood Pressure Location Wood Gudimella [facility] 06-17-2023 09:23-0500 Diastolic blood pressure 90 mm[Hg] Wood Gudimella [facility] 06-17-2023 09:23-0500 Heart rate 77 /min Wood Gudimella [facility] 06-17-2023 09:23-0500 SaO2% (BldA) [Mass fraction] 98 % Wood Gudimella [facility] 06-17-2023 09:23-0500 Systolic blood pressure 118 mm[Hg] Wood Gudimella [facility] 06-03-2023 08:28-0500 Blood Pressure Location Wood Gudimella [facility] 06-03-2023 08:28-0500 Diastolic blood pressure 80 mm[Hg] Wood Gudimella [facility] 06-03-2023 08:28-0500 Heart rate 82 /min Wood Gudimella [facility] 06-03-2023 08:28-0500 SaO2% (BldA) [Mass fraction] 99 % Wood Gudimella [facility] 06-03-2023 08:28-0500 Systolic blood pressure 120 mm[Hg] Wood Gudimella [facility] Encounters Encounter Date Encounter Type Care Provider Facility Start: 04-07-2024 ambulatory Wood Gudimella Facilit y:[facility] Start: 03-30-2024 End: 03-30-2024 ambulatory Wood Gudimella Facility:[facility] Start: 03-30-2024 End: 03-30-2024 Patient encounter procedure Wood Gudimella [facility] Start: 03-25-2024 ambulatory Wood Gudimella Facilit y:[facility] Start: 02-23-2024 End: 02-23-2024 ambulatory Wood Gudimella Facility:[facility] Start: 02-23-2024 End: 02-23-2024 Patient encounter procedure Wood Gudimella [facility] Start: 12-04-2023 ambulatory Rocio Aragon Facility:[facility] Start: 08-04-2023 End: 08-04-2023 ambulatory Wood Gudimella Facility:[facility] Start: 08-04-2023 End: 08-04-2023 Patient encounter procedure Wood Gudimella [facility] Start: 07-17-2023 End: 07-17-2023 ambulatory Cristhian Murray Facility:[facility] Start: 07-17-2023 End: 07-17-2023 Patient encounter procedure Cristhian Murray [facility] Start: 07-08-2023 End: 07-08-2023 ambulatory Celine Gudimella Facility:[facility] Start: 07-08-2023 End: 07-08-2023 Patient encounter procedure Cristhian Murray [facility] [place] Start: 06-17-2023 End: 06-17-2023 ambulatory Wood Gudimella Facility:[facility] Start: 06-17-2023 End: 06-17-2023 Lab Drop off Wood Gudimella [facility] Start: 06-17-2023 End: 06-17-2023 ambulatory Wood Gudimella Facility:[facility] Start: 06-17-2023 End: 06-17-2023 Patient encounter procedure Wood Gudimella [facility] Start: 06-10-2023 End: 06-10-2023 ambulatory Wood Gudimella Facility:[facility] Start: 06-10-2023 End: 06-10-2023 Patient encounter procedure Wood Gudimella [facility] Start: 06-03-2023 ambulatory Wood Gudimella Facilit y:CYNTHIA Feng Start: 06-03-2023 End: 06-03-2023 ambulatory Wood Gudimella Facility:[facility] Start: 06-03-2023 End: 06-03-2023 Lab Drop off Wood Gudimella [facility] Start: 06-03-2023 End: 06-03-2023 ambulatory Wood Gudimella Facility:[facility] Start: 06-03-2023 End: 06-03-2023 Encounter for general adult medical examination with abnormal findings Wood Gudimella [facility] Start: 06-03-2023 End: 06-03-2023 Patient encounter procedure Wood Gudimella [facility] Start: 05-28-2023 End: 05-28-2023 ambulatory [facility] Not Available Start: 05-28-2023 ambulatory Wood Gudimella Facilit y:[facility] Procedures Date Procedure Procedure Detail Performing Clinician Start: 02-23-2024 Vaccine refused by patient Wood Gudimella Start: 07-17-2023 Colonoscopy Cristhian hyman Start: 05-19-1996 Appendectomy WoodKandis balbuena Immunizations Immunization Date Immunization Notes Care Provider Jessica hernandez 05-19-2022 tetanus toxoid, unspecified formulation Wood Gudimella [facility] 05-19-2020 SARS-CoV-2 (COVID-19 ) [id number] vaccine Wood Gudimella [facility] Comment on above: Result Comment: arlene ent states had the first 2 vaccines NEGATED: Highlighted row has not occurred!02-23-2024 influenza virus vaccine, unspecified formulation Wood Gudimella [facility] NEGATED: Highlighted row has not occurred!08-04-2023 influenza virus vaccine, unspecified formulation Wood Gudimella [facility] NEGATED: Highlighted row has not occurred!06-17-2023 influenza virus vaccine, unspecified formulation Wood Gudimella [facility] NEGATED: Highlighted row has not occurred!06-03-2023 influenza virus vaccine, unspecified formulation Wood Gudimella [facility] Payers Date Payer Category Payer Unknown [id number] 1980 Unknown [id number] 2.16.84 [id number] 1978 Unknown [id number] 2.16.8 [id number] 1978 Unknown [id number] 2.16.8 [id number] 1978 Unknown [id number] 2.16.8 [id number] 1978 Unknown [id number] 2.16.8 [id number] 1978 Unknown [id number] 2.16.8 [id number] 1978 Unknown [id number] 2.16.8 [id number] 1978 Unknown [id number] 2.16.8 [id number] 1978 Unknown [id number] 2.16.8 [id number] 1978 Unknown [id number] 2.16.8 [id number] 1978 Unknown [id number] 2.16.8 [id number] 1978 Unknown [id number] 2.16.8 [id number] 1978 Unknown [id number] 2.16.8 [id number] 1978 Unknown [id number] 2.16.8 [id number] Social History Date Type Detail Facility Start: 06-03-2023 End: 02-23-2024 Tobacco smoking status Heavy tobacco smoker (finding) [facility] Tobacco smoking status Never Johne [facility] Sex Assigned At Male [facility] Start: 06-17-2023 End: 08-04-2023 Tobacco smoking status Light tobacco smoker (finding) [facility] Functional Status Date Assessment Result Facility 02-23-2024 Functional Status N/A [facility] 08-04-2023 Functional Status N/A [facility] 07-17-2023 Functional Status N/A [facility] 07-08-2023 Functional Status N/A [facility] [place] 06-17-2023 Functional Status N/A [facility] [place] 06-03-2023 Functional Status N/A [facility] Clinical Notes 07-17-2023 to 07-18-2023 Note Date & Type Note Facility 07-18-2023 Note [id number] [facility] 07-17-2023 Hospital Discharg e instructions Patient Education 07/17/2023 14:33:27 Colon Polyps Colon Polyps Colon polyps are tissue growths inside the colon, which is part of the large intestine. They are one of the types of polyps that can grow in the body. A polyp may be a round bump or a mushroom-shaped growth. You could have one polyp or more than one. Most colon polyps are noncancerous (benign). However, some colon polyps can become cancerous over time. Finding and removing the polyps early can help prevent this. What are the causes? The exact cause of colon polyps is not known. What increases the risk? The following factors may make you more likely to develop this condition: Having a family history of colorectal cancer or colon polyps. Being older than 45 years of age. Being younger than 45 years of age and having a significant family history of colorectal cancer or colon polyps or a genetic condition that puts you at higher risk of getting colon polyps. Having inflammatory bowel disease, such as ulcerative colitis or Crohn's disease. Having certain conditions passed from parent to child (hereditary conditions), such as: ?Familial adenomatous polyposis (FAP). ?Vazquez syndrome. ?Turcot syndrome. ?Peutz Jeghers syndrome. ?MUTYH-associated polyposis (MAP). Being overweight. Certain lifestyle factors. These include smoking cigarettes, drinking too much alcohol, not getting enough exercise, and eating a diet that is high in fat and red meat and low in fiber. Having had childhood cancer that was treated with radiation of the abdomen. What are the signs or symptoms? Many times, there are no symptoms. If you have symptoms, they may include: Blood coming from the rectum during a bowel movement. Blood in the stool (feces). The blood may be bright red or very dark in color. Pain in the abdomen. A change in bowel habits, such as constipation or diarrhea. How is this diagnosed? This condition is diagnosed with a colonoscopy. This is a procedure in which a lighted, flexible scope is inserted into the opening between the buttocks (anus) and then passed into the colon to examine the area. Polyps are sometimes found when a colonoscopy is done as part of routine cancer screening tests. How is this treated? This condition is treated by removing any polyps that are found. Most polyps can be removed during a colonoscopy. Those polyps will then be tested for cancer. Additional treatment may be needed depending on the results of testing. Follow these instructions at home: Eating and drinking Eat foods that are high in fiber, such as fruits, vegetables, and whole grains. Eat foods that are high in calcium and vitamin D, such as milk, cheese, yogurt, eggs, liver, fish, and broccoli. Limit foods that are high in fat, such as fried foods and desserts. Limit the amount of red meat, precooked or cured meat, or other processed meat that you eat, such as hot dogs, sausages, hollis, or meat loaves. Limit sugary drinks. Lifestyle Maintain a healthy weight, or lose weight if recommended by your health care provider. Exercise every day or as told by your health care provider. Do not use any products that contain nicotine or tobacco, such as cigarettes, e-cigarettes, and chewing tobacco. If you need help quitting, ask your health care provider. Do not drink alcohol if: ?Your health care provider tells you not to drink. ?You are , may be , or are planning to become . If you drink alcohol: ?Limit how much you use to: ?0 1 drink a day for women. ?0 2 drinks a day for men. ?Know how much alcohol is in your drink. In the [place] one drink equals one 12 oz bottle of beer (355 mL), one 5 oz glass of wine (148 mL), or one 1 oz glass of hard liquor (44 mL). General instructions Take lmve-fiy-wzqcsnl and prescription medicines only as told by your health care provider. Keep all follow-up visits. This is important. This includes having regularly scheduled colonoscopies. Talk to your health care provider about when you need a colonoscopy. Contact a health care provider if: You have new or worsening bleeding during a bowel movement. You have new or increased blood in your stool. You have a change in bowel habits. You lose weight for no known reason. Summary Colon polyps are tissue growths inside the colon, which is part of the large intestine. They are one type of polyp that can grow in the body. Most colon polyps are noncancerous (benign), but some can become cancerous over time. This condition is diagnosed with a colonoscopy. This condition is treated by removing any polyps that are found. Most polyps can be removed during a colonoscopy. This information is not intended to replace advice given to you by your health care provider. Make sure you discuss any questions you have with your health care provider. Document Revised: 08/23/2020 Document Reviewed: 08/23/2020 [employer] Patient Education 2022 [employer]. 07/17/2023 14:03:37 Colonoscopy, Adult, Care After Colonoscopy, Adult, Care After The following information offers guidance on how to care for yourself after your procedure. Your health care provider may also give you more specific instructions. If you have problems or questions, contact your health care provider. What can I expect after the procedure? After the procedure, it is common to have: A small amount of blood in your stool for 24 hours after the procedure. Some gas. Mild cramping or bloating of your abdomen. Follow these instructions at home: Eating and drinking Drink enough fluid to keep your urine pale yellow. Follow instructions from your health care provider about eating or drinking restrictions. Resume your normal diet as told by your health care provider. Avoid heavy or fried foods that are hard to digest. Activity Rest as told by your health care provider. Avoid sitting for a long time without moving. Get up to take short walks every 1 2 hours. This is important to improve blood flow and breathing. Ask for help if you feel weak or unsteady. Return to your normal activities as told by your health care provider. Ask your health care provider what activities are safe for you. Managing cramping and bloating Try walking around when you have cramps or feel bloated. If directed, apply heat to your abdomen as told by your health care provider. Use the heat source that your health care provider recommends, such as a moist heat pack or a heating pad. ?Place a towel between your skin and the heat source. ?Leave the heat on for 20 30 minutes. ?Remove the heat if your skin turns bright red. This is especially important if you are unable to feel pain, heat, or cold. You have a greater risk of getting burned. General instructions If you were given a sedative during the procedure, it can affect you for several hours. Do not drive or operate machinery until your health care provider says that it is safe. For the first 24 hours after the procedure: ?Do not sign important documents. ?Do not drink alcohol. ?Do your regular daily activities at a slower pace than normal. ?Eat soft foods that are easy to digest. Take cnql-aoy-fyzjlra and prescription medicines only as told by your health care provider. Keep all follow-up visits. This is important. Contact a health care provider if: You have blood in your stool 2 3 days after the procedure. Get help right away if: You have more than a small spotting of blood in your stool. You have large blood clots in your stool. You have swelling of your abdomen. You have nausea or vomiting. You have a fever. You have increasing pain in your abdomen that is not relieved with medicine. These symptoms may be an emergency. Get help right away. Call 911. Do not wait to see if the symptoms will go away. Do not drive yourself to the hospital. Summary After the procedure, it is common to have a small amount of blood in your stool. You may also have mild cramping and bloating of your abdomen. If you were given a sedative during the procedure, it can affect you for several hours. Do not drive or operate machinery until your health care provider says that it is safe. Get help right away if you have a lot of blood in your stool, nausea or vomiting, a fever, or increased pain in your abdomen. This information is not intended to replace advice given to you by your health care provider. Make sure you discuss any questions you have with your health care provider. Document Revised: 12/26/2021 Document Reviewed: 12/26/2021 [employer] Patient Education 2022 [employer]. Follow Up Care 07/08/2023 09:49:03 With:Cristhian Murray Address:Unknown When: Unknown Comments:Office to call for pathology results. Call for any problems. [facility] 07-17-2023 Evaluation + Plan note Extrac jennifer from: Title:ANES Post-operative Note - General Author: Mariano Mclean Jr., DO Date:07/17/23 Plan Transfer/Discharge: Transfer/Discharge Discharge when meets criteria ( From PACU to Ambulatory Surgery Unit, and To home ). Extracted from: Title:ANES Pre-operative Note - Endo Author:Mariano Cid Jr., DO Date:07/17/23 Plan [place] [employer] (ASA) physical status classification: Class III. Anesthetic Preoperative Plan: Anesthesia General, and -TIVA. Future Appointments Appointment Date:12/04/2023 10:30:00 AM Scheduled Provider:Rocio Aragon MD [facility]ments Appointment Date:06/10/2023 08:20:00 AM Scheduled Provider: Location:[facility] Appointment Type:FM Nurse Visit Appointment Date:06/17/2023 09:20:00 AM Scheduled Provider:Wood Flores MD Location:[facility] Appointment Type:FM Open Appointment Date:07/08/2023 09:20:00 AM Scheduled Provider:Cristhian Murray MD Location:[facility] Appointment Type:[address] Evaluation + Plan note Future Appointments Appointment Date:06/17/2023 09:20:00 AM Scheduled Provider:Wood Flores MD Location:[facility] Appointment Type:FM Open Appointment Date:07/08/2023 09:20:00 AM Scheduled Provider:Cristhian Murray MD Location:[facility] Appointment Type:[address] Evaluation + Plan note Future Appointments Appointment Date:07/08/2023 09:20:00 AM Scheduled Provider:Cristhian Murray MD Location:[facility] Appointment Type:[address] Evaluation + Plan note Future Appointments Appointment Date:07/17/2023 02:00:00 PM Scheduled Provider: Location:[facility] Appointment Type:Surgery FT Appointment Date:12/04/2023 10:30:00 AM Scheduled Provider:Rocio Aragon MD Location:[facility] Appointment Type:URO New Patient [facility] [place] Evaluation + Plan note Future Appointments Appointment Date:12/04/2023 10:30:00 AM Scheduled Provider:Rocio Aragon MD Location:[facility] Appointment Type:URO New Patient [facility] Evaluation + Plan note Future Appointments Appointment Date:03/22/2024 09:40:00 AM Scheduled Provider:Wood Flores MD Location:[facility] Appointment Type: Open [facility] Evaluation + Plan note Future Appointments Appointment Date:04/07/2024 08:00:00 AM Scheduled Provider:Wood Flores MD Location:[facility] Appointment Type: Open [facility] [place] [facility] course Narrative No data available for this section [facility] Hospital Discharge instructions No data available for this section [facility] Progress note No data available for this section [facility] Summary Purpose Family History No Family History Records Found No data available for this section No data available for this section No data available for this section No data available for this section No data available for this section No data available for this section No data available for this section No data available for this section No data available for this section No data available for this section No Family History Records Found Advance Directives No Advanced Directives Records FoundNo Advanced Directives Records Found Additional Source Comments (unrecognized sect ion and content) No Status Records FoundNo Status Records Found INFORMATION SOURCE (unrecogn ized section and content) DATE CREATED AUTHOR 05/29/2023 [facility] EPIC DATE CREATED AUTHOR AUTHOR'S KAMERON ATION 04/01/2024 Jah Lopez [facility] Patient Care team informatio n (unrecognized section and content) Personnel Name: Wood Flores MD Address: Address: [address] [place] [address] Personnel Name: Wood Flores MD Address: Address: [address] [place] [address] Personnel Name: Wood Flores MD Address: Address: [address] [place] [address] Personnel Name: Wood Flores MD Address: Address: [address] [place] [address] Personnel Name: Wood Flores MD Address: Address: [address] [place] [address] Personnel Name: Wood Flores MD Address: Address: [address] [place] [address] Personnel Name: Wood Flores MD Address: Address: [address] [place] [address] Personnel Name: Wood Flores MD Address: Address: [address] [place] [address] Personnel Name: Wood Flores MD Address: Address: [address] [place] [address] Personnel Name: Wood Flores MD Address: Address: [address] [place] [address] FOR RECORDS PERTAINING TO PATIENTS WHO ARE OR HAVE BEEN ENROLLED IN A CHEMICAL DEPENDENCY/SUBSTANCEABUSE PROGRAM, SOME INFORMATION MAY BE OMITTED. This clinical summary was aggregated from multiple sources. Caution should be exercised in using it in the provision of clinical care. This summary normalizes information from multiple sources, and as a consequence, information in this document may materially change the coding, format and clinical context of patient data. In addition, data may be omitted in some cases. CLINICAL DECISIONS SHOULD BE BASED ON THE PRIMARY CLINICAL RECORDS. [employer] provides no warranty or guarantee of the accuracy or completeness of information in this document.
[2024-05-05 00:27] LABS: Basophils Percent Auto 0.3 % (0.2-2.0); Eosinophils Absolute Auto 0.2 10^3/uL (0.0-0.7); Hematocrit 45.2 % (42.0-54.0); Hemoglobin 15.4 g/dL (14.0-18.0); Immature Granulocytes Abs Auto 0.06 10^3/uL (0.00-0.03); Immature Granulocytes Pct Auto 0.4 % (0.0-0.5); Lymphocytes Absolute Auto 4.6 10^3/uL (1.2-3.8); Lymphocytes Percent Auto 31.3 % (20.5-60.0); Mean Corpuscular HGB Conc 34.1 g/dL (29.9-35.2); Mean Corpuscular Hemoglobin 30.9 pg (25.9-34.0); Mean Corpuscular Volume 90.8 fL (80.0-94.0); Mean Platelet Volume 9.1 fL (9.5-13.5); Monocytes Absolute Auto 1.2 10^3/uL (0.3-0.8); Monocytes Percent Auto 7.9 % (1.7-12.0); Neutrophils Absolute Auto 8.7 10^3/uL (1.4-6.5); Neutrophils Percent Auto 59.1 % (43.0-75.0); Platelet Count 292 10^3/uL (150-450); Red Blood Count 4.98 10^6/uL (4.70-6.10); White Blood Count 14.7 10^3/uL (4.0-11.0)
--- NOTE | 2024-05-05 00:30 | PC.NURSE ---
this patient complains of left side chest pain when he coughs or takes a deep breathing, onset 2 hours prior to arrival to this er dept,. this patient also adds was dx with pneumonia this week and given oral atb
--- NOTE | 2024-05-05 00:39 | ED.GENADUL1 ---
HPI HPI - General Adult General Chief complaint: Upper Respiratory Infection Stated complaint: CHEST PAIN Time Seen by Provider: 05/05/24 00:06 Source: patient Mode of arrival: walk-in Limitations: no limitations History of Present Illness HPI narrative: 43-year-old male to the emergency department chief complaint of left-sided chest pain that is worse with coughing. Patient reports he gets sharp pain whenever he coughs or takes a deep breath in his left lateral ribs. This started today. Currently on antibiotics for pneumonia. He reports a history of asthma. Related Data Home Medications ?Medication ?Instructions ?Recorded ?Confirmed losartan 50 mg tablet 75 mg PO QDAY 05/02/24 05/05/24 propranolol 20 mg tablet 20 mg PO Q8H 05/02/24 05/05/24 albuterol sulfate 90 mcg/actuation inhalation 05/05/24 aerosol inhaler Previous Rx's ?Medication ?Instructions ?Recorded amoxicillin 875 mg-potassium 1 tab PO Q12H #14 tabs 05/02/24 clavulanate 125 mg tablet fxpjhwtkdziqpjf-oajtbmxpjmikdou-CI 5 ml PO Q4H PRN cold symptoms #118 05/02/24 2 mg-30 mg-10 mg/5 mL oral syrup mL (Bromfed DM) doxycycline monohydrate 100 mg 100 mg PO BID 7 days #14 caps 05/02/24 capsule prednisone 20 mg tablet 60 mg (3 x 20 mg) PO DAILY 5 days 05/02/24 #15 tabs naproxen 500 mg tablet 500 mg PO BID PRN pain #14 tabs 05/05/24 Allergies Allergy/AdvReac Type Severity Reaction Status Date / Time No Known Drug Allergies Allergy Verified 05/05/24 00:14 Opioid HPI Opioid Management Most Recent Opioid Data: Last Pain Scale 10 05/05/24 00:25 05/05/24 Last ED Pain Assessment 05/05/24 00:25 Review of Systems ROS Status of ROS 10 or more systems reviewed and unremarkable except as noted in history and below PFSH PFSH Social History Little interest or pleasure in doing things: not at all Feeling down, depressed, or hopeless: not at all Exam Narrative Exam Narrative: VITALS: I have reviewed the triage vital signs. GENERAL: Well developed, well appearing adult in no acute distress. NEURO: Alert and oriented. Moves all extremities. Face is symmetric and expressive. EYES: PERRL. No scleral icterus or conjunctival injection. No discharge. HENT: Normocephalic, atraumatic. Hearing is grossly intact. Nares grossly patent and without discharge. Mucous membranes moist. NECK: No JVD. Patient moves neck without restriction. CARDIO: Rhythm regular. Normal rate. No murmur, rub, or gallop. Pulses equal bilaterally in the upper and lower extremity. No lower extremity edema. PULM: Trace wheezes. Rhonchi that clear with coughing. No conversational dyspnea. No splinting, stridor, or accessory muscle use. Dry cough on exam. Tenderness to the left chest reproducible. GI/: Abdomen is soft and non-tender. Normoactive bowel sounds. EXTREMITIES: Symmetric muscle bulk. No joint swelling. No clubbing, cyanosis, or deformity. SKIN: Warm and dry. Normal turgor. No rash or lesions appreciated. PSYCH: Mood, affect, and interaction is appropriate to the setting. Constitutional Vital Signs, click to edit/add: Last Vital Signs Temp 98.0 F 05/05/24 00:08 Pulse 72 05/05/24 00:08 Resp 20 05/05/24 00:08 BP 136/86 05/05/24 00:08 Pulse Ox 100 05/05/24 00:08 O2 Del Method Room Air 05/05/24 00:09 Course Vital Signs Vital signs: Vital Signs Temperature 98.0 F 05/05/24 00:08 Pulse Rate 72 05/05/24 00:08 Respiratory Rate 20 05/05/24 00:08 Blood Pressure 136/86 05/05/24 00:08 Pulse Oximetry 100 05/05/24 00:08 Oxygen Delivery Method Room Air 05/05/24 00:08 Temperature 98.0 F 05/05/24 00:08 Pulse Rate 72 05/05/24 00:08 Respiratory Rate 20 05/05/24 00:08 Blood Pressure 136/86 05/05/24 00:08 Pulse Oximetry 100 05/05/24 00:08 Oxygen Delivery Method Room Air 05/05/24 00:09 Medical Decision Making MDM Narrative Medical decision making narrative: 43-year-old male to the emergency department chief: A sharp pain between his left lateral ribs when coughing. Started several hours prior to arrival. Currently being treated for pneumonia. Lung exam is unremarkable except for some rhonchi and trace wheezes. He is in no respiratory distress. Toradol for discomfort. He did drive here to the emergency department. Basic labs, troponin, EKG, chest x-ray given his chest pain. Patient agrees with this plan. CBC and chemistry without major abnormalities. Troponin is low. EKG without evidence of ischemia. Chest x-ray is without acute findings. PERC negative, effectively ruling out VTE in this low risk patient. Discussed with the patient. Likely pleurisy. Will treat with NSAID. Return precautions were discussed. All questions were answered. The patient was discharged home. Heart Score for Major Cardiac Event History: Example factors for history - pattern of chest pain, onset, duration, relation with exercise, stress or cold, localization, concomitant symptoms. reaction to sublingual nitrates, [] Highly suspicious +2 [] Moderately suspicious +1 [x] Slightly suspicious 0 EKG: [] Significant ST-Depression +2 [] Non specific repolarization disturbance +1 [x] Normal 0 Age: [] >= 65 +2 [x] 45-65 + 1 [] <45 0 Risk Factors: (HLD, HTN, DM, Cigarette Smoking, Pos Family Hx, Obesity) [] >3 risk factors or hx of atherosclerotic disease + 2 [x] 1-2 risk factors + 1 [] No risk factors known 0 Troponin: [] >= 3X normal + 2 [] 1-3X normal + 1 [x] <= Normal 0 [x] 0-3 Points 0.9 - 1.7% risk of major adverse cardiac event in 6 weeks [] 4-6 Points 12-16.6% risk of major adverse cardiac event in 6 weeks [] 7-10 Points 50-65% risk of major adverse cardiac event in 6 weeks [] 0-3 Points with 2 sets of negative cardiac markers <1% risk of major adverse cardiac event in 30 days. Medical Records Medical records reviewed: Yes I reviewed the patient's medical records Lab Data Lab results reviewed: Yes I reviewed the patient's lab results Labs: Lab Results 05/05/24 Range/Units 00:15 WBC 14.7 H (4.0-11.0) 10^3/uL RBC 4.98 (4.70-6.10) 10^6/uL Hgb 15.4 (14.0-18.0) g/dL Hct 45.2 (42.0-54.0) % MCV 90.8 (80.0-94.0) fL MCH 30.9 (25.9-34.0) pg MCHC 34.1 (29.9-35.2) g/dL RDW 13.0 (11.0-15.0) % Plt Count 292 (150-450) 10^3/uL MPV 9.1 L (9.5-13.5) fL Neut % (Auto) 59.1 (43.0-75.0) % Lymph % (Auto) 31.3 (20.5-60.0) % [place] % (Auto) 7.9 (1.7-12.0) % Eos % (Auto) 1.0 (0.9-7.0) % Baso % (Auto) 0.3 (0.2-2.0) % Neut # (Auto) 8.7 H (1.4-6.5) 10^3/uL Lymph # (Auto) 4.6 H (1.2-3.8) 10^3/uL [place] # (Auto) 1.2 H (0.3-0.8) 10^3/uL Eos # (Auto) 0.2 (0.0-0.7) 10^3/uL Baso # (Auto) 0.0 (0.0-0.1) 10^3/uL Abs Immat Gran (auto) 0.06 H (0.00-0.03) 10^3/uL Imm/Tot Granulo (auto) 0.4 (0.0-0.5) % Sodium 141 (136-145) mmol/L Potassium 3.4 L (3.5-5.1) mmol/L Chloride 103 (98-107) mmol/L Carbon Dioxide 31.0 (21.0-32.0) mmol/L Anion Gap 10.4 BUN 24.0 H (7.0-18.0) mg/dL Creatinine 1.11 (0.70-1.30) mg/dL Est GFR ( Amer) >60 (>=60 mL/min/1.73m^2) Est GFR (Non-Af Amer) >60 (>=60 mL/min/1.73m^2) BUN/Creatinine Ratio 21.6 Glucose 85 (74-106) mg/dL Calcium 9.3 (8.5-10.1) mg/dL Troponin I High Sens 5.3 (4.0-76.1) pg/mL Imaging Data Chest x-ray: Attestation: I have reviewed the pertinent imaging results. Radiologist's impression: ITS Impressions Chest X-Ray 05/05/24 00:16 IMPRESSION: 1. No acute cardiopulmonary abnormality. Electronically authenticated by: Andrew CRONIN Date: 05/05/2024 00:56 ECG Data Attestation: I personally reviewed and interpreted this ECG as follows: (Normal sinus rhythm at a rate of 69. No STEMI. Normal QTc.) Discharge Plan Discharge Chief Complaint: Upper Respiratory Infection Clinical Impression: Pleurisy Patient Disposition: Home, Self-Care Time of Disposition Decision: 01:10 Condition: Good Mode of Transportation: Private Vehicle Prescriptions / Home Meds: New naproxen 500 mg tablet 500 mg PO BID PRN (Reason: pain) Qty: 14 0RF No Action losartan 50 mg tablet 75 mg PO QDAY propranolol 20 mg tablet 20 mg PO Q8H doxycycline monohydrate 100 mg capsule 100 mg PO BID 7 Days Qty: 14 0RF [id number] [Bromfed DM] 2-30-10 mg/5 mL syrup 5 ml PO Q4H PRN (Reason: cold symptoms) Qty: 118 0RF amoxicillin-pot clavulanate 875-125 mg tablet 1 tab PO Q12H Qty: 14 0RF prednisone 20 mg tablet 60 mg PO DAILY 5 Days Qty: 15 0RF albuterol sulfate 90 mcg/actuation HFA aerosol inhaler INHALATION Print Language: Turkmen Instructions: Pleurisy (ED) Additional Instructions: Call the office of your primary care doctor to arrange for follow-up within the above-stated timeframe. Your ED visit was focused on your acute issue and does not replace primary care. You should review your labs, imaging, and diagnoses from this ED visit with your primary care physician. There may be non-emergent/ incidental findings that need further evaluation. You should review your vital signs including blood pressure with your PCP. If you were prescribed medications you should discuss possible side-effects and drug interactions with your pharmacist. Call 911 or go to the nearest Emergency Department if you develop any new or worsening symptoms. Seek immediate medical attention if you develop: worsening chest pain, new chest pain, nausea, vomiting, weakness, numbness, tingling, excessive sweating, shortness of breath, difficulty breathing, loss of motion in your arms or legs, or any new or worsening symptoms. Referrals: Celine Flores MD [Primary Care Provider] - 1 week
[2024-05-05 00:46] LABS: Anion Gap 10.4; BUN Creatinine Ratio 21.6; Calcium 9.3 mg/dL (8.5-10.1); Chloride 103 mmol/L (98-107); Estimated GFR (African America >60 (>=60 mL/min/1.73m^2); Estimated GFR (Non-African Ame >60 (>=60 mL/min/1.73m^2); Glucose 85 mg/dL (74-106); Potassium 3.4 mmol/L (3.5-5.1); Sodium 141 mmol/L (136-145); Troponin I High Sensitivity 5.3 pg/mL (4.0-76.1)
[2024-05-05] MEDS: KETOROLAC TROMETHAMINE 30 MG/ML VIAL 15 MG IVP (01:04)
[2024-05-05 01:18] VITALS: BP 103/73; PULSE 84; TEMP 37.1; O2SAT 100
--- NOTE | 2024-05-05 01:23 | PC.NURSE ---
i gave this patient verbal and paper discharge orders along with 1 e-script. this patient voices yes to understanding these. at tie of discharge this patient voices no concerns and show s no sign of distress
== END 2024-05-05 01:24 | disposition home or self-care (01) ==
PROVIDERS: Emergency Provider Student in an Organized Health Care Education/Training Program; Family Provider Family Medicine; PCP Family Medicine
DX: R09.1 Pleurisy (principal); J18.9 Pneumonia, unspecified organism; J45.909 Unspecified asthma, uncomplicated
CPT/HCPCS: 36415; 71046; 80048; 84484; 85025; 93005; 96374; 99285; J1885